=== PATIENT | female | born 1945 | race Caucasian/White ===

== ENCOUNTER 2021-10-07 09:24 | Inpatient (IN) ==
[2021-10-07] MEDS ORDERED: SODIUM CHLORIDE 0.9% 1,000 ML IV STA (11:04)
[2021-10-07] MEDS ORDERED: KETOROLAC 30 MG/1 ML VIAL IV STA (11:04)
[2021-10-07] MEDS ORDERED: ONDANSETRON 4 MG/2 ML VIAL IV STA (11:04)
[2021-10-07 12:25] LABS: Immature Granulocytes % 1.4 %; Immature Granulocytes Absolute 0.12 #; Lymphocytes # 0.6 10*3/uL (1.4-4.0); Lymphocytes % 7.2 % (21.3-54.2); Mean Corpuscular Volume 91.7 FL (87-102); Monocytes # 0.3 10*3/uL (0.11-0.8); Monocytes % 3.6 % (1.7-12.7); Neutrophils % 87.8 % (38.7-73.9); Platelet Count 117 T/CUMM (130-400); Red Blood Count 7.11 MC/CUMM (3.8-5.5); Red Cell Distribution Width 16.6 % (9.3-17.3); White Blood Count 8.7 T/CUMM (4-12)
[2021-10-07 12:28] LABS: Alanine Aminotransferase 32 U/L (13-56); Albumin 3.4 G/DL (3.4-5.0); Alkaline Phosphatase 48 U/L (45-117); Amylase 114 U/L (25-115); Aspartate Amino Transferase 43 U/L (0-37); Blood Urea Nitrogen 31 MG/DL (7-18); Calcium 9.8 MG/DL (8.5-10.1); Carbon Dioxide 25 MMOL/L (21-32); Chloride 98 MMOL/L (98-107); Estimated Glom Filtration Rate 14 ML/MIN; Glucose 107 MG/DL (74-106); Osmolality,Calculated 274.2 MOS/KG (273-304); Potassium 3.7 MMOL/L (3.5-5.1); Sodium 134 MMOL/L (136-145)
[2021-10-07 12:29] LABS: Hematocrit 65.2 VOL% (35.7-47.0); Hemoglobin 22.2 GM/DL (12.0-16.0)
[2021-10-07 12:53] LABS: Band Neutrophils 42 % (0-10); Lymphocytes 5 % (20-55); Metamyelocytes 5 %; Total Cells Counted 100
[2021-10-07 12:55] LABS: Platelet Estimate Adequate; Polychromasia Few; Spherocytes Slight
[2021-10-07 12:58] LABS: Burr Cells Few; Target Cells Slight
[2021-10-07 12:59] LABS: Poikilocytosis Few
[2021-10-07] MEDS ORDERED: PIPERACILLIN/TAZOBACTAM 3,375 MG in SODIUM CHLORIDE 0.9% 100 ML IV STA (13:53)
[2021-10-07] MEDS ORDERED: SODIUM CHLORIDE 0.9% 2,600 ML IV ONE (14:01)
[2021-10-07] MEDS: ACETAMINOPHEN 325 MG TABLET PO PRN (18:07)
[2021-10-07 19:05] LABS: Basophils # 0.1 10*3/uL (0.0-0.2); Basophils % 0.5 % (0.0-0.8); Hematocrit 37.2 VOL% (35.7-47.0); Immature Granulocytes % 2.9 %; Immature Granulocytes Absolute 0.38 #; Lymphocytes # 1.1 10*3/uL (1.4-4.0); Lymphocytes % 8.5 % (21.3-54.2); Mean Corpuscular HGB Conc 33.1 GM/DL (32-36); Mean Corpuscular Volume 93.9 FL (87-102); Mean Platelet Volume 11.1 FL (9.6-12.0); Monocytes # 0.7 10*3/uL (0.11-0.8); Monocytes % 5.1 % (1.7-12.7); Red Cell Distribution Width 14.6 % (9.3-17.3)
[2021-10-07 19:06] LABS: Hemoglobin 12.3 GM/DL (12.0-16.0); Red Blood Count 3.96 MC/CUMM (3.8-5.5)
[2021-10-07 19:07] LABS: Platelet Count 163 T/CUMM (130-400); White Blood Count 13.2 T/CUMM (4-12)
[2021-10-07 19:17] LABS: Calcium 7.3 MG/DL (8.5-10.1); Osmolality,Calculated 285.5 MOS/KG (273-304); Potassium 4.2 MMOL/L (3.5-5.1)
[2021-10-07 19:21] LABS: Albumin 2.4 G/DL (3.4-5.0); Bilirubin,Direct 0.28 MG/DL (0.0-0.20); Bilirubin,Indirect 0.7 MG/DL (0.0-1.0); Total Protein 5.8 G/DL (6.4-8.2)
[2021-10-07] MEDS: traMADol 50 MG TABLET PO PRN (19:22)
[2021-10-07 19:25] LABS: Anisocytosis Slight; Atypical Lymphocytes Few; Band Neutrophils 27 % (0-10); Burr Cells 1+; Lymphocytes 10 % (20-55); Macrocytosis Slight; Metamyelocytes 9 %; Microcytosis Slight; Poikilocytosis 1+; Total Cells Counted 100
[2021-10-07 19:27] LABS: Dohle Bodies 1+; Platelet Estimate Normal; Toxic Granulation 1+
[2021-10-07] MEDS: ONDANSETRON 4 MG/2 ML VIAL IV PRN (19:30)
[2021-10-07] MEDS: SODIUM CHLORIDE 0.9% 1,000 ML IV SCH ×2 (21:35→22:00)
[2021-10-07] MEDS: DOCUSATE SODIUM 100 MG CAPSULE PO SCH (21:35)
[2021-10-07] MEDS: MORPHINE 2 MG/1 ML SYRINGE IV PRN (22:03)
[2021-10-07] MEDS: PIPERACILLIN/TAZOBACTAM 3,375 MG in SODIUM CHLORIDE 0.9% 100 ML IV SCH (22:05)
[2021-10-08] MEDS: PROMETHAZINE INJ 12.5 MG in SODIUM CHLORIDE 0.9% 50 ML IV PRN ×2 (02:38→10:56)
[2021-10-08] MEDS: MORPHINE 2 MG/1 ML SYRINGE IV PRN (02:39)
[2021-10-08 03:15] LABS: Mucus,Urine Occasional /LPF (Occasional); Squamous Epithelial Cell,Urine Occasional /HPF (0-10); Urine Appearance Clear (Clear); Urine Color Yellow (Yellow)
[2021-10-08 03:16] LABS: Bilirubin,Urine Small mg/dL (Negative); Blood, Urine Trace mg/dL (Negative); Glucose,Urine (UA) Negative (Negative); Ketones,Urine Negative (Negative); Nitrite,Urine Negative (Negative); Protein,Urine 30 mg/dL (Negative); Urine Specific Gravity 1.025 (1.001-1.035); Urine Urobilinogen 0.2 eU/dL (<2.0)
[2021-10-08] MEDS: PIPERACILLIN/TAZOBACTAM 3,375 MG in SODIUM CHLORIDE 0.9% 100 ML IV SCH ×2 (05:39→18:35)
[2021-10-08] MEDS: ONDANSETRON 4 MG/2 ML VIAL IV PRN (05:47)
[2021-10-08] MEDS: SODIUM CHLORIDE 0.9% 1,000 ML IV SCH ×2 (05:57→16:03)
[2021-10-08 06:29] LABS: Basophils # 0.1 10*3/uL (0.0-0.2); Basophils % 0.6 % (0.0-0.8); Hematocrit 36.4 VOL% (35.7-47.0); Hemoglobin 12.1 GM/DL (12.0-16.0); Immature Granulocytes Absolute 0.11 #; Lymphocytes # 0.8 10*3/uL (1.4-4.0); Lymphocytes % 6.8 % (21.3-54.2); Mean Corpuscular HGB Conc 33.2 GM/DL (32-36); Mean Corpuscular Volume 93.1 FL (87-102); Mean Platelet Volume 11.4 FL (9.6-12.0); Monocytes # 0.4 10*3/uL (0.11-0.8); Monocytes % 3.4 % (1.7-12.7); Neutrophils % 88.2 % (38.7-73.9); Platelet Count 163 T/CUMM (130-400); Red Blood Count 3.91 MC/CUMM (3.8-5.5); White Blood Count 11.5 T/CUMM (4-12)
[2021-10-08 06:55] LABS: Band Neutrophils 4 % (0-10); Lymphocytes 4 % (20-55); Platelet Estimate Adequate; Total Cells Counted 100
[2021-10-08 07:02] LABS: Albumin 2.4 G/DL (3.4-5.0); Bilirubin,Total 0.9 MG/DL (0.20-1.00); Osmolality,Calculated 284.7 MOS/KG (273-304); Potassium 3.1 MMOL/L (3.5-5.1); Total Protein 6.2 G/DL (6.4-8.2)
[2021-10-08] MEDS ORDERED: MAGNESIUM SULF RIDER 2 GM/50 ML PREMIX IV ONE (13:00)
[2021-10-08] MEDS ORDERED: DILTIAZEM 50 MG/10 ML VIAL IV ONE (13:00)
[2021-10-08] MEDS: DOCUSATE SODIUM 100 MG CAPSULE PO SCH ×2 (13:59→20:39)
[2021-10-08] MEDS: PANTOPRAZOLE 40 MG TABLET PO SCH (13:59)
[2021-10-08] MEDS: DILTIAZEM INJ 100 MG in SODIUM CHLORIDE 0.9% 100 ML IV SCH (14:47)
[2021-10-08] MEDS: ASCORBIC ACID 500 MG TABLET PO SCH ×2 (16:29→20:39)
[2021-10-08] MEDS: POTASSIUM CHLORIDE RIDER 10 MEQ/100 ML PREMIX IV SCH ×4 (19:29→22:56)
[2021-10-09] MEDS: ACETAMINOPHEN 325 MG TABLET PO PRN (00:04)
[2021-10-09] MEDS: POTASSIUM CHLORIDE RIDER 10 MEQ/100 ML PREMIX IV SCH (00:05)
[2021-10-09] MEDS: PIPERACILLIN/TAZOBACTAM 3,375 MG in SODIUM CHLORIDE 0.9% 100 ML IV SCH ×3 (01:19→16:23)
[2021-10-09] MEDS: DILTIAZEM INJ 100 MG in SODIUM CHLORIDE 0.9% 100 ML IV SCH ×3 (02:12→19:48)
[2021-10-09] MEDS: SODIUM CHLORIDE 0.9% 1,000 ML IV SCH ×4 (03:45→21:38)
[2021-10-09 04:59] LABS: Basophils % 0.1 % (0.0-0.8); Eosinophils % 0.2 % (0.00-10.9); Hematocrit 38.8 VOL% (35.7-47.0); Hemoglobin 12.8 GM/DL (12.0-16.0); Immature Granulocytes % 0.4 %; Immature Granulocytes Absolute 0.04 #; Lymphocytes # 0.8 10*3/uL (1.4-4.0); Lymphocytes % 7.7 % (21.3-54.2); Mean Platelet Volume 11.2 FL (9.6-12.0); Monocytes # 0.5 10*3/uL (0.11-0.8); Monocytes % 4.4 % (1.7-12.7); Neutrophils % 87.2 % (38.7-73.9); Platelet Count 205 T/CUMM (130-400); Red Blood Count 4.17 MC/CUMM (3.8-5.5); Red Cell Distribution Width 15.2 % (9.3-17.3); White Blood Count 10.6 T/CUMM (4-12)
[2021-10-09 05:22] LABS: Band Neutrophils 3 % (0-10); Lymphocytes 9 % (20-55); Platelet Estimate Adequate; Total Cells Counted 100
[2021-10-09 05:35] LABS: Albumin 2.4 G/DL (3.4-5.0); Bilirubin,Total 0.5 MG/DL (0.20-1.00); Calcium 8.2 MG/DL (8.5-10.1); Free T4 (Free Thyroxine) 1.45 NG/DL (0.76-1.46); Osmolality,Calculated 287.7 MOS/KG (273-304); Thyroid Stimulating Hormone 0.07 uIU/ml (0.358-3.74); Total Protein 6.7 G/DL (6.4-8.2)
[2021-10-09] MEDS: PANTOPRAZOLE 40 MG TABLET PO SCH (09:57)
[2021-10-09] MEDS: DOCUSATE SODIUM 100 MG CAPSULE PO SCH (09:57)
[2021-10-09] MEDS: ASCORBIC ACID 500 MG TABLET PO SCH (09:57)
[2021-10-09] MEDS: ONDANSETRON 4 MG/2 ML VIAL IV PRN (10:14)
[2021-10-09] MEDS ORDERED: POTASSIUM CHLORIDE 20 MEQ TABLET PO ONE (10:39)
[2021-10-09] MEDS ORDERED: POTASSIUM CHLORIDE 20 MEQ TABLET PO PRN (10:39)
[2021-10-09] MEDS ORDERED: POTASSIUM CHLORIDE RIDER 10 MEQ/100 ML PREMIX IV PRN (13:01)
[2021-10-09] MEDS: ENOXAPARIN 80 MG/0.8 ML SYRINGE SUBCUT SCH (13:37)
[2021-10-09] MEDS: POTASSIUM CHLORIDE RIDER 10 MEQ/100 ML PREMIX IV PRN ×5 (13:38→18:16)
[2021-10-09] MEDS ORDERED: MORPHINE 2 MG/1 ML SYRINGE IV PRN ×2 (15:09)
[2021-10-09] MEDS ORDERED: PHENOL 1.4% THROAT SPRAY 177 ML BOTTLE PO PRN (15:09)
[2021-10-09] MEDS ORDERED: ONDANSETRON 4 MG/2 ML VIAL IV PRN (15:10)
[2021-10-10] MEDS: PIPERACILLIN/TAZOBACTAM 3,375 MG in SODIUM CHLORIDE 0.9% 100 ML IV SCH ×3 (00:52→16:48)
[2021-10-10] MEDS: DILTIAZEM INJ 100 MG in SODIUM CHLORIDE 0.9% 100 ML IV SCH ×3 (03:47→21:44)
[2021-10-10] MEDS: SODIUM CHLORIDE 0.9% 1,000 ML IV SCH ×3 (05:39→16:48)
[2021-10-10 08:52] LABS: Albumin 1.9 G/DL (3.4-5.0); Bilirubin,Total 0.7 MG/DL (0.20-1.00); Calcium 8.4 MG/DL (8.5-10.1); Osmolality,Calculated 285.3 MOS/KG (273-304); Potassium 3.3 MMOL/L (3.5-5.1); Total Protein 5.9 G/DL (6.4-8.2)
[2021-10-10] MEDS: PANTOPRAZOLE 40 MG VIAL IV SCH (09:08)
[2021-10-10] MEDS: POTASSIUM CHLORIDE RIDER 10 MEQ/100 ML PREMIX IV PRN ×4 (09:37→16:49)
[2021-10-10] MEDS ORDERED: DIGOXIN 0.5 MG/2 ML AMP IV ONE (10:04)
[2021-10-10] MEDS ORDERED: AMIODARONE INJ 150 MG in DEXTROSE 5% 100 ML IV ONE (11:23)
[2021-10-10] MEDS ORDERED: AMIODARONE INJ 450 MG in DEXTROSE 5% 241 ML IV SCH (11:30)
[2021-10-10] MEDS ORDERED: DILTIAZEM 50 MG/10 ML VIAL IV ONE (12:43)
[2021-10-10] MEDS: ENOXAPARIN 80 MG/0.8 ML SYRINGE SUBCUT SCH (13:20)
[2021-10-10] MEDS ORDERED: carvediloL 6.25 MG TABLET PO SCH (17:02)
[2021-10-10] MEDS: SODIUM CHLOR 0.9% KCL 20 MEQ 20 MEQ/1,000 ML BAG IV SCH (18:19)
[2021-10-10] MEDS: metroNIDAZOLE INJ 500 MG/100 ML PREMIX IV SCH (21:15)
[2021-10-10] MEDS: METOPROLOL TARTRATE 5 MG/5 ML VIAL IV SCH ×2 (21:36→21:37)
[2021-10-11] MEDS: PIPERACILLIN/TAZOBACTAM 3,375 MG in SODIUM CHLORIDE 0.9% 100 ML IV SCH ×2 (00:35→09:14)
[2021-10-11] MEDS: DILTIAZEM INJ 100 MG in SODIUM CHLORIDE 0.9% 100 ML IV SCH ×2 (02:54→14:59)
[2021-10-11] MEDS: metroNIDAZOLE INJ 500 MG/100 ML PREMIX IV SCH (04:51)
[2021-10-11 04:57] LABS: Basophils % 0.2 % (0.0-0.8); Eosinophils # 0.3 10*3/uL (0.0-0.87); Eosinophils % 2.1 % (0.00-10.9); Hematocrit 35.4 VOL% (35.7-47.0); Hemoglobin 11.8 GM/DL (12.0-16.0); Immature Granulocytes % 10.2 %; Immature Granulocytes Absolute 1.28 #; Lymphocytes # 1.5 10*3/uL (1.4-4.0); Lymphocytes % 11.8 % (21.3-54.2); Mean Corpuscular HGB Conc 33.3 GM/DL (32-36); Mean Corpuscular Volume 93.4 FL (87-102); Mean Platelet Volume 11.2 FL (9.6-12.0); Monocytes # 1.5 10*3/uL (0.11-0.8); Monocytes % 12.1 % (1.7-12.7); Neutrophils % 63.6 % (38.7-73.9); Platelet Count 222 T/CUMM (130-400); Red Blood Count 3.79 MC/CUMM (3.8-5.5); Red Cell Distribution Width 15.9 % (9.3-17.3); White Blood Count 12.5 T/CUMM (4-12)
[2021-10-11 05:17] LABS: Albumin 1.9 G/DL (3.4-5.0); Bilirubin,Total 0.7 MG/DL (0.20-1.00); Calcium 8.6 MG/DL (8.5-10.1); Osmolality,Calculated 288.8 MOS/KG (273-304); Potassium 3.2 MMOL/L (3.5-5.1)
[2021-10-11 05:23] LABS: Band Neutrophils 12 % (0-10); Eosinophils 5 % (0-10); Lymphocytes 11 % (20-55); Metamyelocytes 1 %; Promyelocytes 3 %; Total Cells Counted 100
[2021-10-11 05:24] LABS: Microcytosis Slight; Platelet Estimate Normal
[2021-10-11] MEDS: METOPROLOL TARTRATE 5 MG/5 ML VIAL IV SCH ×2 (05:29→15:33)
[2021-10-11] MEDS: PANTOPRAZOLE 40 MG VIAL IV SCH (09:12)
[2021-10-11] MEDS: AMIODARONE INJ 450 MG in DEXTROSE 5% 241 ML IV SCH (11:57)
[2021-10-11] MEDS: SODIUM CHLOR 0.9% KCL 20 MEQ 20 MEQ/1,000 ML BAG IV SCH ×2 (12:42→12:43)
[2021-10-11] MEDS: MEROPENEM 500 MG in SODIUM CHLORIDE 0.9% 100 ML IV SCH ×2 (15:27→19:32)
[2021-10-11] MEDS: ENOXAPARIN 80 MG/0.8 ML SYRINGE SUBCUT SCH (15:34)
[2021-10-11] MEDS ORDERED: METOPROLOL TARTRATE 5 MG/5 ML VIAL IV PRN (19:35)
[2021-10-11] MEDS ORDERED: LEVOTHYROXINE 100 MCG TABLET PO ONE (20:00)
[2021-10-11] MEDS: MONTELUKAST 10 MG TABLET PO SCH (20:35)
[2021-10-11] MEDS: FLUTICASONE 50 MCG NASAL SPRAY 16 GM BOTTLE BOTH NARES SCH (21:36)
[2021-10-11] MEDS: ALBUTEROL/IPRATROPIUM 3 ML NEB RESP TX SCH (22:15)
[2021-10-12] MEDS: SODIUM CHLOR 0.9% KCL 20 MEQ 20 MEQ/1,000 ML BAG IV SCH ×4 (00:13→21:48)
[2021-10-12] MEDS: MEROPENEM 500 MG in SODIUM CHLORIDE 0.9% 100 ML IV SCH ×4 (00:13→17:44)
[2021-10-12] MEDS: ENOXAPARIN 80 MG/0.8 ML SYRINGE SUBCUT SCH ×2 (01:49→12:50)
[2021-10-12] MEDS: AMIODARONE INJ 450 MG in DEXTROSE 5% 241 ML IV SCH (01:49)
[2021-10-12 06:13] LABS: Basophils % 0.1 % (0.0-0.8); Eosinophils # 0.4 10*3/uL (0.0-0.87); Eosinophils % 1.8 % (0.00-10.9); Hematocrit 36.6 VOL% (35.7-47.0); Hemoglobin 11.9 GM/DL (12.0-16.0); Immature Granulocytes % 13.5 %; Immature Granulocytes Absolute 2.62 #; Lymphocytes # 2.3 10*3/uL (1.4-4.0); Mean Corpuscular HGB Conc 32.5 GM/DL (32-36); Mean Corpuscular Volume 94.6 FL (87-102); Monocytes # 1.5 10*3/uL (0.11-0.8); Monocytes % 7.7 % (1.7-12.7); NRBC # 0.04 10*3/uL; Neutrophils % 64.9 % (38.7-73.9); Platelet Count 240 T/CUMM (130-400); Red Blood Count 3.87 MC/CUMM (3.8-5.5); White Blood Count 19.4 T/CUMM (4-12)
[2021-10-12] MEDS ORDERED: LEVOTHYROXINE 200 MCG TABLET PO SCH (06:30)
[2021-10-12 06:43] LABS: Band Neutrophils 8 % (0-10); Eosinophils 2 % (0-10); Lymphocytes 10 % (20-55); Metamyelocytes 2 %; Microcytosis Slight; Myelocytes 1 %; Platelet Estimate Normal; Promyelocytes 1 %; Total Cells Counted 100
[2021-10-12 06:49] LABS: Albumin 1.8 G/DL (3.4-5.0); Bilirubin,Total 0.6 MG/DL (0.20-1.00); Calcium 7.8 MG/DL (8.5-10.1); Osmolality,Calculated 277.5 MOS/KG (273-304); Potassium 3.2 MMOL/L (3.5-5.1); Total Protein 5.5 G/DL (6.4-8.2)
[2021-10-12] MEDS: ALBUTEROL/IPRATROPIUM 3 ML NEB RESP TX SCH ×3 (07:15→23:30)
[2021-10-12] MEDS: FEXOFENADINE 180 MG TABLET PO SCH (08:30)
[2021-10-12] MEDS: ASPIRIN EC 81 MG TABLET PO SCH (08:30)
[2021-10-12] MEDS: LORATADINE 10 MG TABLET PO SCH (08:30)
[2021-10-12] MEDS: PANTOPRAZOLE 40 MG VIAL IV SCH (08:36)
[2021-10-12] MEDS: carvediloL 6.25 MG TABLET PO SCH ×2 (08:36→17:43)
[2021-10-12] MEDS: NON-FORMULARY MEDICATION (Fluticasone Furoate-Vilanterol [Breo Ellipta] 200-25 mcg/dose Bl INH SCH (10:10)
[2021-10-12] MEDS: AMIODARONE 200 MG TABLET PO SCH ×2 (12:13→21:06)
[2021-10-12] MEDS: DILTIAZEM INJ 100 MG in SODIUM CHLORIDE 0.9% 100 ML IV SCH (15:04)
[2021-10-12] MEDS: FAMOTIDINE 20 MG TABLET PO SCH (21:06)
[2021-10-12] MEDS: FLUTICASONE 50 MCG NASAL SPRAY 16 GM BOTTLE BOTH NARES SCH (21:07)
[2021-10-12] MEDS: MONTELUKAST 10 MG TABLET PO SCH (21:09)
[2021-10-13] MEDS: MEROPENEM 500 MG in SODIUM CHLORIDE 0.9% 100 ML IV SCH ×4 (01:15→18:36)
[2021-10-13 04:04] LABS: Basophils % 0.1 % (0.0-0.8); Eosinophils # 0.3 10*3/uL (0.0-0.87); Eosinophils % 1.3 % (0.00-10.9); Hematocrit 34.3 VOL% (35.7-47.0); Hemoglobin 11.2 GM/DL (12.0-16.0); Immature Granulocytes % 12.9 %; Immature Granulocytes Absolute 2.79 #; Lymphocytes # 2.1 10*3/uL (1.4-4.0); Lymphocytes % 9.8 % (21.3-54.2); Mean Corpuscular HGB Conc 32.7 GM/DL (32-36); Mean Corpuscular Volume 94.2 FL (87-102); Mean Platelet Volume 10.9 FL (9.6-12.0); Monocytes # 1.3 10*3/uL (0.11-0.8); Monocytes % 6.2 % (1.7-12.7); Neutrophils % 69.7 % (38.7-73.9); Platelet Count 248 T/CUMM (130-400); Red Blood Count 3.64 MC/CUMM (3.8-5.5); Red Cell Distribution Width 15.9 % (9.3-17.3); White Blood Count 21.6 T/CUMM (4-12)
[2021-10-13 04:12] LABS: PT Patient Result 11.5 SECS (10.5-12.0)
[2021-10-13 04:27] LABS: Albumin 1.7 G/DL (3.4-5.0); Bilirubin,Total 0.5 MG/DL (0.20-1.00); Calcium 7.5 MG/DL (8.5-10.1); Eosinophils 1 % (0-10); Lymphocytes 16 % (20-55); Osmolality,Calculated 275.5 MOS/KG (273-304); Platelet Estimate Normal; Potassium 3.5 MMOL/L (3.5-5.1); Total Cells Counted 100; Total Protein 5.1 G/DL (6.4-8.2)
[2021-10-13] MEDS: LEVOTHYROXINE 150 MCG TABLET PO SCH (06:28)
[2021-10-13] MEDS: ALBUTEROL/IPRATROPIUM 3 ML NEB RESP TX SCH ×2 (07:20→23:14)
[2021-10-13] MEDS: SODIUM CHLOR 0.9% KCL 20 MEQ 20 MEQ/1,000 ML BAG IV SCH ×3 (08:17→21:40)
[2021-10-13] MEDS ORDERED: MAGNESIUM SULF RIDER 2 GM/50 ML PREMIX IV ONE (08:29)
[2021-10-13] MEDS: PANTOPRAZOLE 40 MG VIAL IV SCH (09:21)
[2021-10-13] MEDS: AMIODARONE 200 MG TABLET PO SCH ×2 (09:22→21:42)
[2021-10-13] MEDS: NON-FORMULARY MEDICATION (Fluticasone Furoate-Vilanterol [Breo Ellipta] 200-25 mcg/dose Bl INH SCH (09:22)
[2021-10-13] MEDS: FEXOFENADINE 180 MG TABLET PO SCH (09:22)
[2021-10-13] MEDS: LORATADINE 10 MG TABLET PO SCH (09:22)
[2021-10-13] MEDS: carvediloL 6.25 MG TABLET PO SCH ×2 (09:22→17:50)
[2021-10-13] MEDS: FAMOTIDINE 20 MG TABLET PO SCH ×2 (09:23→21:42)
[2021-10-13] MEDS ORDERED: DIAZEPAM 5 MG TABLET PO ONE (09:47)
[2021-10-13] MEDS ORDERED: MIDAZOLAM 2 MG/2 ML VIAL IV ONE (10:40)
[2021-10-13] MEDS ORDERED: fentaNYL 100 MCG/2 ML VIAL IV ONE (10:41)
[2021-10-13] MEDS: SODIUM CHLORIDE 0.45% 1,000 ML IV SCH (10:43)
[2021-10-13] MEDS ORDERED: DEXTROSE 10% 25 GM/250 ML BAG IV PRN (12:02)
[2021-10-13] MEDS ORDERED: GLUCAGON 1 MG VIAL IM PRN (12:02)
[2021-10-13] MEDS: DILTIAZEM INJ 100 MG in SODIUM CHLORIDE 0.9% 100 ML IV SCH (13:29)
[2021-10-13] MEDS ORDERED: DEXTROSE 10% 1,000 ML IV PRN (17:00)
[2021-10-13] MEDS ORDERED: MULTIVITAMIN INJ 10 ML, ZINC/COPPER/MANGANESE/SELENIUM 1 ML in AMINO ACIDS/DEXT/LYTES 5... IV SCH (17:00)
[2021-10-13] MEDS: INSULIN REGULAR 100 UNIT/ML SUBCUT SCH (18:35)
[2021-10-13] MEDS: traMADol 50 MG TABLET PO PRN (21:41)
[2021-10-13] MEDS: MONTELUKAST 10 MG TABLET PO SCH (21:41)
[2021-10-13] MEDS: FLUTICASONE 50 MCG NASAL SPRAY 16 GM BOTTLE BOTH NARES SCH (21:42)
[2021-10-14] MEDS: MEROPENEM 500 MG in SODIUM CHLORIDE 0.9% 100 ML IV SCH ×5 (00:37→23:30)
[2021-10-14] MEDS: INSULIN REGULAR 100 UNIT/ML SUBCUT SCH ×4 (00:46→18:01)
[2021-10-14] MEDS: ENOXAPARIN 80 MG/0.8 ML SYRINGE SUBCUT SCH ×2 (00:47→13:15)
[2021-10-14] MEDS: SODIUM CHLOR 0.9% KCL 20 MEQ 20 MEQ/1,000 ML BAG IV SCH ×2 (00:47→14:57)
[2021-10-14] MEDS: LEVOTHYROXINE 150 MCG TABLET PO SCH (06:08)
[2021-10-14 06:22] LABS: Phosphorous 2.4 MG/DL (2.5-4.9)
[2021-10-14] MEDS: ALBUTEROL/IPRATROPIUM 3 ML NEB RESP TX SCH ×2 (07:00→14:20)
[2021-10-14] MEDS: BUDESONIDE 0.25 MG/2 ML NEB RESP TX SCH (07:00)
[2021-10-14 07:41] LABS: Albumin 1.8 G/DL (3.4-5.0); Bilirubin,Total 0.4 MG/DL (0.20-1.00); Calcium 7.9 MG/DL (8.5-10.1); Osmolality,Calculated 275.7 MOS/KG (273-304); Potassium 3.5 MMOL/L (3.5-5.1); Total Protein 5.4 G/DL (6.4-8.2)
[2021-10-14] MEDS: LORATADINE 10 MG TABLET PO SCH (08:12)
[2021-10-14] MEDS: FEXOFENADINE 180 MG TABLET PO SCH (08:12)
[2021-10-14] MEDS: FAMOTIDINE 20 MG TABLET PO SCH ×2 (08:12→20:46)
[2021-10-14] MEDS: PANTOPRAZOLE 40 MG VIAL IV SCH (08:12)
[2021-10-14] MEDS: AMIODARONE 200 MG TABLET PO SCH ×2 (08:12→20:46)
[2021-10-14] MEDS: carvediloL 6.25 MG TABLET PO SCH ×2 (08:13→17:53)
[2021-10-14] MEDS: ASPIRIN EC 81 MG TABLET PO SCH (08:18)
[2021-10-14] MEDS: NON-FORMULARY MEDICATION (Fluticasone Furoate-Vilanterol [Breo Ellipta] 200-25 mcg/dose Bl INH SCH (08:18)
[2021-10-14 08:54] LABS: Basophils % 0.1 % (0.0-0.8); Eosinophils # 0.3 10*3/uL (0.0-0.87); Eosinophils % 1.8 % (0.00-10.9); Hematocrit 35.3 VOL% (35.7-47.0); Hemoglobin 11.3 GM/DL (12.0-16.0); Immature Granulocytes % 11.1 %; Immature Granulocytes Absolute 2.07 #; Lymphocytes # 1.8 10*3/uL (1.4-4.0); Lymphocytes % 9.5 % (21.3-54.2); Mean Corpuscular Volume 95.4 FL (87-102); Mean Platelet Volume 11.2 FL (9.6-12.0); Monocytes # 1.2 10*3/uL (0.11-0.8); Monocytes % 6.2 % (1.7-12.7); Neutrophils % 71.3 % (38.7-73.9); Platelet Count 267 T/CUMM (130-400); Red Cell Distribution Width 15.8 % (9.3-17.3); White Blood Count 18.7 T/CUMM (4-12)
[2021-10-14 09:27] LABS: Anisocytosis 1+; Band Neutrophils 25 % (0-10); Lymphocytes 11 % (20-55); Metamyelocytes 2 %; Myelocytes 3 %; Platelet Estimate Normal; Total Cells Counted 100
[2021-10-14 09:28] LABS: Giant Platelets Few; Macrocytosis Slight; Spherocytes Few
[2021-10-14] MEDS: SODIUM CHLORIDE 0.45% 1,000 ML IV SCH (13:02)
[2021-10-14] MEDS: DILTIAZEM INJ 100 MG in SODIUM CHLORIDE 0.9% 100 ML IV SCH (13:03)
[2021-10-14] MEDS: methylPREDNISolone SOD SUC 40 MG/1 ML VIAL IV SCH (13:15)
[2021-10-14] MEDS: KETOROLAC 15 MG/1 ML VIAL IV SCH ×2 (13:16→20:46)
[2021-10-14] MEDS ORDERED: FAT EMULSION 20% 250 ML IV SCH (14:00)
[2021-10-14] MEDS ORDERED: MULTIVITAMIN INJ 10 ML, ZINC/COPPER/MANGANESE/SELENIUM 1 ML in AMINO ACIDS/DEXT/LYTES 5... IV SCH (17:00)
[2021-10-14] MEDS: ZINC OXIDE PASTE 113 GM TUBE TOP SCH (20:46)
[2021-10-14] MEDS: MONTELUKAST 10 MG TABLET PO SCH (20:46)
[2021-10-14] MEDS: FLUTICASONE 50 MCG NASAL SPRAY 16 GM BOTTLE BOTH NARES SCH (20:46)
[2021-10-15] MEDS: methylPREDNISolone SOD SUC 40 MG/1 ML VIAL IV SCH
[2021-10-15] MEDS: BUDESONIDE 0.25 MG/2 ML NEB RESP TX SCH ×2 (00:15→07:10)
[2021-10-15] MEDS: ALBUTEROL/IPRATROPIUM 3 ML NEB RESP TX SCH ×3 (00:15→13:20)
[2021-10-15] MEDS: INSULIN REGULAR 100 UNIT/ML SUBCUT SCH ×4 (00:28→17:44)
[2021-10-15] MEDS: KETOROLAC 15 MG/1 ML VIAL IV SCH ×4 (01:36→20:48)
[2021-10-15 05:18] LABS: Basophils # 0.1 10*3/uL (0.0-0.2); Basophils % 0.7 % (0.0-0.8); Hematocrit 33.2 VOL% (35.7-47.0); Hemoglobin 10.7 GM/DL (12.0-16.0); Immature Granulocytes % 9.7 %; Immature Granulocytes Absolute 1.78 #; Lymphocytes # 1.7 10*3/uL (1.4-4.0); Mean Corpuscular HGB Conc 32.2 GM/DL (32-36); Mean Corpuscular Volume 94.6 FL (87-102); Mean Platelet Volume 11.1 FL (9.6-12.0); Monocytes # 0.5 10*3/uL (0.11-0.8); Monocytes % 2.7 % (1.7-12.7); Neutrophils % 77.9 % (38.7-73.9); Platelet Count 300 T/CUMM (130-400); Red Blood Count 3.51 MC/CUMM (3.8-5.5); Red Cell Distribution Width 15.6 % (9.3-17.3); White Blood Count 18.3 T/CUMM (4-12)
[2021-10-15 05:39] LABS: Alanine Aminotransferase 17 U/L (13-56); Albumin 1.6 G/DL (3.4-5.0); Alkaline Phosphatase 69 U/L (45-117); Aspartate Amino Transferase 19 U/L (0-37); Bilirubin,Total < 0.39 MG/DL (0.20-1.00); Blood Urea Nitrogen 15 MG/DL (7-18); Carbon Dioxide 21 MMOL/L (21-32); Chloride 108 MMOL/L (98-107); Estimated Glom Filtration Rate 101 ML/MIN; Glucose 163 MG/DL (74-106); Potassium 4.1 MMOL/L (3.5-5.1); Sodium 136 MMOL/L (136-145); Total Protein 5.2 G/DL (6.4-8.2)
[2021-10-15 05:47] LABS: Anisocytosis 1+; Band Neutrophils 30 % (0-10); Lymphocytes 9 % (20-55); Macrocytosis Slight; Metamyelocytes 2 %; Myelocytes 2 %; Platelet Estimate Normal; Total Cells Counted 100
[2021-10-15 05:48] LABS: Spherocytes Few
[2021-10-15] MEDS: MEROPENEM 500 MG in SODIUM CHLORIDE 0.9% 100 ML IV SCH ×3 (06:19→20:48)
[2021-10-15] MEDS: LEVOTHYROXINE 150 MCG TABLET PO SCH (06:19)
[2021-10-15] MEDS ORDERED: VANCOMYCIN INJ 1,000 MG in SODIUM CHLORIDE 0.9% 250 ML IV SCH (08:00)
[2021-10-15] MEDS: POTASSIUM CHLORIDE 20 MEQ TABLET PO SCH (09:29)
[2021-10-15] MEDS: carvediloL 6.25 MG TABLET PO SCH ×2 (09:30→17:42)
[2021-10-15] MEDS: FEXOFENADINE 180 MG TABLET PO SCH (09:30)
[2021-10-15] MEDS: FAMOTIDINE 20 MG TABLET PO SCH ×2 (09:31→20:48)
[2021-10-15] MEDS: lisinopriL 10 MG TABLET PO SCH (09:31)
[2021-10-15] MEDS: AMIODARONE 200 MG TABLET PO SCH ×2 (09:32→20:48)
[2021-10-15] MEDS: ASPIRIN EC 81 MG TABLET PO SCH (09:32)
[2021-10-15] MEDS: LORATADINE 10 MG TABLET PO SCH (09:32)
[2021-10-15] MEDS: hydroCHLOROthiazide 12.5 MG CAPSULE PO SCH (09:33)
[2021-10-15] MEDS: ZINC OXIDE PASTE 113 GM TUBE TOP SCH ×2 (09:35→20:49)
[2021-10-15] MEDS: NON-FORMULARY MEDICATION (Fluticasone Furoate-Vilanterol [Breo Ellipta] 200-25 mcg/dose Bl INH SCH (09:36)
[2021-10-15] MEDS: PANTOPRAZOLE 40 MG VIAL IV SCH (09:37)
[2021-10-15] MEDS: VANCOMYCIN INJ 1,250 MG in SODIUM CHLORIDE 0.9% 250 ML IV SCH ×2 (10:53→21:18)
[2021-10-15] MEDS: DILTIAZEM INJ 100 MG in SODIUM CHLORIDE 0.9% 100 ML IV SCH (13:10)
[2021-10-15] MEDS: ENOXAPARIN 80 MG/0.8 ML SYRINGE SUBCUT SCH ×2 (14:28)
[2021-10-15] MEDS: ONDANSETRON 4 MG/2 ML VIAL IV PRN (16:09)
[2021-10-15] MEDS: MONTELUKAST 10 MG TABLET PO SCH (20:48)
[2021-10-15] MEDS: FLUTICASONE 50 MCG NASAL SPRAY 16 GM BOTTLE BOTH NARES SCH (20:49)
[2021-10-16] MEDS: INSULIN REGULAR 100 UNIT/ML SUBCUT SCH ×4 (01:33→17:50)
[2021-10-16] MEDS: KETOROLAC 15 MG/1 ML VIAL IV SCH ×2 (01:50→05:00)
[2021-10-16] MEDS: MEROPENEM 500 MG in SODIUM CHLORIDE 0.9% 100 ML IV SCH ×4 (03:50→18:33)
[2021-10-16 04:40] LABS: Basophils # 0.1 10*3/uL (0.0-0.2); Basophils % 0.6 % (0.0-0.8); Eosinophils # 0.1 10*3/uL (0.0-0.87); Eosinophils % 0.6 % (0.00-10.9); Hemoglobin 11.5 GM/DL (12.0-16.0); Immature Granulocytes % 6.2 %; Immature Granulocytes Absolute 1.21 #; Lymphocytes # 2.1 10*3/uL (1.4-4.0); Lymphocytes % 10.8 % (21.3-54.2); Mean Corpuscular HGB Conc 31.9 GM/DL (32-36); Mean Corpuscular Volume 95.2 FL (87-102); Mean Platelet Volume 10.7 FL (9.6-12.0); Monocytes # 1.5 10*3/uL (0.11-0.8); Monocytes % 7.7 % (1.7-12.7); Neutrophils % 74.1 % (38.7-73.9); Platelet Count 386 T/CUMM (130-400); Red Blood Count 3.78 MC/CUMM (3.8-5.5); Red Cell Distribution Width 15.9 % (9.3-17.3); White Blood Count 19.5 T/CUMM (4-12)
[2021-10-16 04:58] LABS: Phosphorous 2.5 MG/DL (2.5-4.9)
[2021-10-16 05:04] LABS: Band Neutrophils 3 % (0-10); Lymphocytes 12 % (20-55); Myelocytes 1 %; Total Cells Counted 100
[2021-10-16 05:05] LABS: Macrocytosis Slight; Platelet Estimate Normal
[2021-10-16 05:22] LABS: Calcium 7.9 MG/DL (8.5-10.1); Osmolality,Calculated 272.8 MOS/KG (273-304); Potassium 3.7 MMOL/L (3.5-5.1)
[2021-10-16] MEDS: LEVOTHYROXINE 150 MCG TABLET PO SCH (06:08)
[2021-10-16] MEDS: BUDESONIDE 0.25 MG/2 ML NEB RESP TX SCH ×3 (07:15→22:41)
[2021-10-16] MEDS: ALBUTEROL/IPRATROPIUM 3 ML NEB RESP TX SCH ×5 (07:15→22:40)
[2021-10-16] MEDS ORDERED: FUROSEMIDE 40 MG/4 ML VIAL IV ONE (09:31)
[2021-10-16] MEDS ORDERED: MAGNESIUM SULF RIDER 2 GM/50 ML PREMIX IV ONE ×2 (09:38→22:52)
[2021-10-16] MEDS ORDERED: cefTRIAXone 2,000 MG in SODIUM CHLORIDE 0.9% 100 ML IV SCH (10:00)
[2021-10-16] MEDS ORDERED: FLUCONAZOLE INJ 400 MG/200 ML PREMIX IV ONE (10:30)
[2021-10-16] MEDS: carvediloL 6.25 MG TABLET PO SCH ×2 (11:27→17:59)
[2021-10-16] MEDS: FEXOFENADINE 180 MG TABLET PO SCH (11:27)
[2021-10-16] MEDS: ASPIRIN EC 81 MG TABLET PO SCH (11:27)
[2021-10-16] MEDS: LORATADINE 10 MG TABLET PO SCH (11:28)
[2021-10-16] MEDS: AMIODARONE 200 MG TABLET PO SCH ×2 (11:28→21:58)
[2021-10-16] MEDS: ZINC OXIDE PASTE 113 GM TUBE TOP SCH ×2 (11:28→22:01)
[2021-10-16] MEDS: NON-FORMULARY MEDICATION (Fluticasone Furoate-Vilanterol [Breo Ellipta] 200-25 mcg/dose Bl INH SCH (11:29)
[2021-10-16] MEDS: FAMOTIDINE 20 MG TABLET PO SCH ×2 (11:30→21:58)
[2021-10-16] MEDS: lisinopriL 10 MG TABLET PO SCH (11:30)
[2021-10-16] MEDS: POTASSIUM CHLORIDE 20 MEQ TABLET PO SCH (11:30)
[2021-10-16] MEDS: PANTOPRAZOLE 40 MG VIAL IV SCH (11:34)
[2021-10-16] MEDS: traMADol 50 MG TABLET PO PRN (12:07)
[2021-10-16] MEDS: hydroCHLOROthiazide 12.5 MG CAPSULE PO SCH (12:13)
[2021-10-16] MEDS: SIMETHICONE CHEW 125 MG TABLET PO SCH ×3 (13:17→21:58)
[2021-10-16] MEDS: ENOXAPARIN 80 MG/0.8 ML SYRINGE SUBCUT SCH ×2 (13:17)
[2021-10-16] MEDS: DILTIAZEM INJ 100 MG in SODIUM CHLORIDE 0.9% 100 ML IV SCH (15:25)
[2021-10-16] MEDS: MONTELUKAST 10 MG TABLET PO SCH (21:58)
[2021-10-16] MEDS: FLUTICASONE 50 MCG NASAL SPRAY 16 GM BOTTLE BOTH NARES SCH (22:01)
[2021-10-17] MEDS: INSULIN REGULAR 100 UNIT/ML SUBCUT SCH ×4 (00:33→17:15)
[2021-10-17] MEDS: ENOXAPARIN 80 MG/0.8 ML SYRINGE SUBCUT SCH (01:49)
[2021-10-17] MEDS: MEROPENEM 500 MG in SODIUM CHLORIDE 0.9% 100 ML IV SCH ×5 (01:53→18:09)
[2021-10-17 05:11] LABS: Basophils # 0.2 10*3/uL (0.0-0.2); Basophils % 0.6 % (0.0-0.8); Eosinophils % 0.1 % (0.00-10.9); Hematocrit 40.7 VOL% (35.7-47.0); Hemoglobin 13.3 GM/DL (12.0-16.0); Immature Granulocytes % 5.5 %; Immature Granulocytes Absolute 1.61 #; Lymphocytes % 10.2 % (21.3-54.2); Mean Corpuscular HGB Conc 32.7 GM/DL (32-36); Mean Corpuscular Volume 92.9 FL (87-102); Mean Platelet Volume 10.9 FL (9.6-12.0); Monocytes # 1.4 10*3/uL (0.11-0.8); Monocytes % 4.6 % (1.7-12.7); Platelet Count 556 T/CUMM (130-400); Red Blood Count 4.38 MC/CUMM (3.8-5.5); Red Cell Distribution Width 15.9 % (9.3-17.3); White Blood Count 29.3 T/CUMM (4-12)
[2021-10-17 05:36] LABS: Band Neutrophils 3 % (0-10); Lymphocytes 7 % (20-55); Nucleated Red Blood Cells 1 (0-5); Platelet Estimate Increased; Total Cells Counted 100
[2021-10-17 05:50] LABS: Albumin 1.7 G/DL (3.4-5.0); Bilirubin,Total 0.4 MG/DL (0.20-1.00); Calcium 8.4 MG/DL (8.5-10.1); Osmolality,Calculated 267.4 MOS/KG (273-304); Potassium 4.3 MMOL/L (3.5-5.1); Total Protein 5.6 G/DL (6.4-8.2)
[2021-10-17] MEDS: LEVOTHYROXINE 150 MCG TABLET PO SCH (06:15)
[2021-10-17] MEDS: BUDESONIDE 0.25 MG/2 ML NEB RESP TX SCH ×2 (07:08→19:41)
[2021-10-17] MEDS: ALBUTEROL/IPRATROPIUM 3 ML NEB RESP TX SCH ×2 (07:08→14:18)
[2021-10-17] MEDS: carvediloL 6.25 MG TABLET PO SCH ×2 (09:03→17:41)
[2021-10-17] MEDS: lisinopriL 10 MG TABLET PO SCH (09:03)
[2021-10-17] MEDS: PANTOPRAZOLE 40 MG VIAL IV SCH (09:53)
[2021-10-17] MEDS: ASPIRIN EC 81 MG TABLET PO SCH (09:54)
[2021-10-17] MEDS: POTASSIUM CHLORIDE 20 MEQ TABLET PO SCH (09:54)
[2021-10-17] MEDS: LORATADINE 10 MG TABLET PO SCH (09:54)
[2021-10-17] MEDS: FAMOTIDINE 20 MG TABLET PO SCH ×2 (09:54→21:40)
[2021-10-17] MEDS: SIMETHICONE CHEW 125 MG TABLET PO SCH ×4 (09:54→21:45)
[2021-10-17] MEDS: FEXOFENADINE 180 MG TABLET PO SCH (09:54)
[2021-10-17] MEDS: AMIODARONE 200 MG TABLET PO SCH ×2 (09:54→21:40)
[2021-10-17] MEDS: NON-FORMULARY MEDICATION (Fluticasone Furoate-Vilanterol [Breo Ellipta] 200-25 mcg/dose Bl INH SCH (09:55)
[2021-10-17] MEDS: ZINC OXIDE PASTE 113 GM TUBE TOP SCH ×2 (09:59→21:43)
[2021-10-17] MEDS: FLUCONAZOLE INJ 200 MG/100 ML PREMIX IV SCH (10:00)
[2021-10-17] MEDS ORDERED: LACTATED RINGERS 1,000 ML IV ONE (11:24)
[2021-10-17] MEDS: DILTIAZEM INJ 100 MG in SODIUM CHLORIDE 0.9% 100 ML IV SCH (13:13)
[2021-10-17] MEDS: FLUTICASONE 50 MCG NASAL SPRAY 16 GM BOTTLE BOTH NARES SCH (21:43)
[2021-10-17] MEDS: MONTELUKAST 10 MG TABLET PO SCH (21:44)
[2021-10-18] MEDS: ALBUTEROL/IPRATROPIUM 3 ML NEB RESP TX SCH ×4 (00:21→23:14)
[2021-10-18] MEDS: INSULIN REGULAR 100 UNIT/ML SUBCUT SCH ×4 (00:54→18:18)
[2021-10-18] MEDS: MEROPENEM 500 MG in SODIUM CHLORIDE 0.9% 100 ML IV SCH ×4 (01:19→20:06)
[2021-10-18 05:08] LABS: Basophils # 0.2 10*3/uL (0.0-0.2); Basophils % 0.5 % (0.0-0.8); Eosinophils % 0.1 % (0.00-10.9); Hematocrit 35.2 VOL% (35.7-47.0); Hemoglobin 11.5 GM/DL (12.0-16.0); Immature Granulocytes % 6.1 %; Immature Granulocytes Absolute 1.67 #; Lymphocytes # 2.2 10*3/uL (1.4-4.0); Lymphocytes % 8.1 % (21.3-54.2); Mean Corpuscular HGB Conc 32.7 GM/DL (32-36); Mean Corpuscular Volume 93.1 FL (87-102); Mean Platelet Volume 10.7 FL (9.6-12.0); Monocytes # 1.8 10*3/uL (0.11-0.8); Monocytes % 6.6 % (1.7-12.7); Neutrophils % 78.6 % (38.7-73.9); Platelet Count 458 T/CUMM (130-400); Red Blood Count 3.78 MC/CUMM (3.8-5.5); White Blood Count 27.4 T/CUMM (4-12)
[2021-10-18 05:31] LABS: Albumin 1.5 G/DL (3.4-5.0); Band Neutrophils 5 % (0-10); Bilirubin,Total 0.4 MG/DL (0.20-1.00); Calcium 8.1 MG/DL (8.5-10.1); Lymphocytes 7 % (20-55); Osmolality,Calculated 271.1 MOS/KG (273-304); Platelet Estimate Adequate; Potassium 4.4 MMOL/L (3.5-5.1); Total Cells Counted 100; Total Protein 5.3 G/DL (6.4-8.2)
[2021-10-18] MEDS: LEVOTHYROXINE 150 MCG TABLET PO SCH (06:37)
[2021-10-18] MEDS ORDERED: ALBUMIN 5% 25.0 GM/500 ML VIAL IV ONE (07:14)
[2021-10-18] MEDS ORDERED: PHENYLEPHRINE DRIP 20 MG/250 ML PREMIX IV ONE (07:14)
[2021-10-18] MEDS ORDERED: ROCURONIUM 50 MG/5 ML VIAL IV ONE ×2 (07:20→11:36)
[2021-10-18] MEDS ORDERED: SUFentanil 50 MCG/ML AMP ONE (07:20)
[2021-10-18] MEDS ORDERED: SUCCINYLCHOLINE 200 MG/10 ML VIAL ONE (07:20)
[2021-10-18] MEDS ORDERED: propofoL 200 MG/20 ML VIAL IV ONE (07:20)
[2021-10-18] MEDS ORDERED: SEVOFLURANE 1 UNIT/15 MINUTE INH ONE ×4 (07:20→11:56)
[2021-10-18] MEDS ORDERED: LIDOCAINE 2% 5 ML VIAL ONE (07:20)
[2021-10-18] MEDS ORDERED: HEPARIN/NACL 0.9% 2 UNITS/ML 1,000 UNIT/500 ML BAG IV ONE (07:33)
[2021-10-18] MEDS ORDERED: LACTATED RINGERS 1,000 ML IV SCH (08:00)
[2021-10-18] MEDS: BUDESONIDE 0.25 MG/2 ML NEB RESP TX SCH ×2 (08:37→23:13)
[2021-10-18] MEDS ORDERED: ERTAPENEM 1,000 MG VIAL ONE (09:27)
[2021-10-18] MEDS ORDERED: ERTAPENEM 1,000 MG in SODIUM CHLORIDE 0.9% 100 ML IV ONE (09:30)
[2021-10-18] MEDS ORDERED: LACTATED RINGERS 2,000 ML IV ONE (10:20)
[2021-10-18] MEDS ORDERED: SODIUM CHLORIDE 0.9% 1,000 ML IV ONE (10:20)
[2021-10-18] MEDS ORDERED: PHENYLEPHRINE 10 MG/1 ML VIAL IV ONE (10:20)
[2021-10-18] MEDS ORDERED: PHENYLEPHRINE 1 MG/10 ML SYRINGE IV ONE (10:20)
[2021-10-18] MEDS ORDERED: SODIUM CHLORIDE 0.9% 250 ML IV ONE (10:20)
[2021-10-18 11:04] LABS: ABG Base Excess -4.5 MMOL/L (-2.5-2.5); ABG HCO3 20.7 MMOL/L (20-26); ABG Oxygen Saturation 95.9 % (95-100); ABG PCO2 47.2 MM HG (35-48); ABG PH 7.284 (7.35-7.45); ABG TCO2 20.3 MMOL/L (23-27); Glucose Heart Surgery 105 MG/DL (74-106); Hematocrit Heart Surgery 34.6 PERCENT (37-47); Hemoglobin Heart Surgery 11.2 G/DL (12.0-16.0); PCO2 Patient Temp Arterial 47.2 MMHG; PH Patient Temp Arterial 7.284; Patient Temperature 37 CELCIUS; Potassium Heart/CVR 4.3 MMOL/L (3.5-5.1); Sodium Heart/CVR 132 MMOL/L (135-145)
[2021-10-18] MEDS ORDERED: MIDAZOLAM 2 MG/2 ML VIAL ONE ×3 (11:04)
[2021-10-18] MEDS ORDERED: PHENYLEPHRINE DRIP 40 MG/250 ML PREMIX IV ONE (12:21)
[2021-10-18] MEDS: ZINC OXIDE PASTE 113 GM TUBE TOP SCH ×2 (12:37→20:31)
[2021-10-18] MEDS: LORATADINE 10 MG TABLET PO SCH (12:37)
[2021-10-18] MEDS: FEXOFENADINE 180 MG TABLET PO SCH (12:37)
[2021-10-18] MEDS: ASPIRIN EC 81 MG TABLET PO SCH (12:37)
[2021-10-18] MEDS: AMIODARONE 200 MG TABLET PO SCH (12:37)
[2021-10-18] MEDS: carvediloL 6.25 MG TABLET PO SCH (12:37)
[2021-10-18] MEDS: NON-FORMULARY MEDICATION (Fluticasone Furoate-Vilanterol [Breo Ellipta] 200-25 mcg/dose Bl INH SCH (12:38)
[2021-10-18] MEDS: FAMOTIDINE 20 MG TABLET PO SCH (12:38)
[2021-10-18] MEDS: SIMETHICONE CHEW 125 MG TABLET PO SCH ×4 (12:38→20:31)
[2021-10-18] MEDS: POTASSIUM CHLORIDE 20 MEQ TABLET PO SCH (12:38)
[2021-10-18 13:18] LABS: ABG Base Excess -3.8 MMOL/L (-2.5-2.5); ABG HCO3 21.2 MMOL/L (20-26); ABG Oxygen Saturation 92.5 % (95-100); ABG PCO2 52.8 MM HG (35-48); ABG PH 7.266 (7.35-7.45); ABG PO2 80.9 MM HG (80-95); ABG TCO2 21.5 MMOL/L (23-27); Glucose Heart Surgery 122 MG/DL (74-106); Hematocrit Heart Surgery 38.7 PERCENT (37-47); Hemoglobin Heart Surgery 12.6 G/DL (12.0-16.0); Potassium Heart/CVR 4.8 MMOL/L (3.5-5.1)
[2021-10-18] MEDS: PANTOPRAZOLE 40 MG VIAL IV SCH (13:33)
[2021-10-18] MEDS: FLUCONAZOLE INJ 200 MG/100 ML PREMIX IV SCH (13:51)
[2021-10-18] MEDS ORDERED: FUROSEMIDE 40 MG/4 ML VIAL IV ONE (13:55)
[2021-10-18] MEDS ORDERED: MIDAZOLAM 100 MG in SODIUM CHLORIDE 0.9% 80 ML IV PRN (13:59)
[2021-10-18] MEDS: PHENYLEPHRINE DRIP 40 MG/250 ML PREMIX IV PRN ×2 (14:00→23:39)
[2021-10-18 14:06] LABS: ABG Base Excess -4.7 MMOL/L (-2.5-2.5); ABG HCO3 20.5 MMOL/L (20-26); ABG Oxygen Saturation 96.2 % (95-100); ABG PCO2 44.8 MM HG (35-48); ABG PH 7.297 (7.35-7.45); ABG TCO2 19.5 MMOL/L (23-27)
[2021-10-18] MEDS: LACTATED RINGERS 1,000 ML IV SCH ×2 (14:23→23:06)
[2021-10-18 14:38] LABS: Basophils # 0.1 10*3/uL (0.0-0.2); Basophils % 0.2 % (0.0-0.8); Eosinophils % 0.1 % (0.00-10.9); Hematocrit 38.1 VOL% (35.7-47.0); Hemoglobin 12.6 GM/DL (12.0-16.0); Immature Granulocytes % 5.1 %; Immature Granulocytes Absolute 1.38 #; Lymphocytes # 2.6 10*3/uL (1.4-4.0); Lymphocytes % 9.5 % (21.3-54.2); Mean Corpuscular HGB Conc 33.1 GM/DL (32-36); Mean Corpuscular Volume 94.8 FL (87-102); Mean Platelet Volume 10.8 FL (9.6-12.0); Monocytes # 1.2 10*3/uL (0.11-0.8); Monocytes % 4.3 % (1.7-12.7); Neutrophils % 80.8 % (38.7-73.9); Platelet Count 591 T/CUMM (130-400); Red Blood Count 4.02 MC/CUMM (3.8-5.5); Red Cell Distribution Width 16.1 % (9.3-17.3); White Blood Count 27.2 T/CUMM (4-12)
[2021-10-18 14:55] LABS: Calcium 6.9 MG/DL (8.5-10.1); Osmolality,Calculated 276.8 MOS/KG (273-304); Potassium 5.1 MMOL/L (3.5-5.1)
[2021-10-18] MEDS: DILTIAZEM INJ 100 MG in SODIUM CHLORIDE 0.9% 100 ML IV SCH (15:12)
[2021-10-18 15:23] LABS: Band Neutrophils 1 % (0-10); Lymphocytes 8 % (20-55); Metamyelocytes 3 %; Myelocytes 1 %; Platelet Estimate Increased; Total Cells Counted 100
[2021-10-18] MEDS: fentaNYL INJ 1,250 MCG in SODIUM CHLORIDE 0.9% 225 ML IV PRN (15:26)
[2021-10-18] MEDS: LEVOTHYROXINE 100 MCG VIAL IV SCH (15:31)
[2021-10-18] MEDS ORDERED: ALBUMIN 5% 25 GM/500 ML VIAL IV ONE (16:45)
[2021-10-18] MEDS ORDERED: LACTATED RINGERS 250 ML IV ONE (17:00)
[2021-10-18] MEDS ORDERED: ZINC/COPPER/MANGANESE/SELENIUM 1 ML, MULTIVITAMIN INJ 10 ML in AMINO ACIDS/DEXT/LYTES 5... IV SCH (17:00)
[2021-10-18] MEDS ORDERED: DEXTROSE 10% 1,000 ML IV PRN (17:00)
[2021-10-18] MEDS: FLUTICASONE 50 MCG NASAL SPRAY 16 GM BOTTLE BOTH NARES SCH (20:31)
[2021-10-18] MEDS ORDERED: MAGNESIUM SULF RIDER 2 GM/50 ML PREMIX IV ONE (22:39)
[2021-10-19] MEDS: INSULIN REGULAR 100 UNIT/ML SUBCUT SCH ×4 (00:20→17:39)
[2021-10-19] MEDS: MEROPENEM 500 MG in SODIUM CHLORIDE 0.9% 100 ML IV SCH ×4 (00:52→18:27)
[2021-10-19 03:28] LABS: ABG Base Excess -1.7 MMOL/L (-2.5-2.5); ABG Oxygen Saturation 97.6 % (95-100); ABG PCO2 33.2 MM HG (35-48); ABG PH 7.429 (7.35-7.45); ABG TCO2 19.9 MMOL/L (23-27)
[2021-10-19 03:30] LABS: Basophils # 0.1 10*3/uL (0.0-0.2); Basophils % 0.2 % (0.0-0.8); Eosinophils % 0.1 % (0.00-10.9); Hematocrit 33.2 VOL% (35.7-47.0); Hemoglobin 10.7 GM/DL (12.0-16.0); Immature Granulocytes % 5.2 %; Immature Granulocytes Absolute 1.49 #; Lymphocytes # 2.9 10*3/uL (1.4-4.0); Lymphocytes % 10.2 % (21.3-54.2); Mean Corpuscular HGB Conc 32.2 GM/DL (32-36); Mean Corpuscular Volume 95.4 FL (87-102); Mean Platelet Volume 10.6 FL (9.6-12.0); Monocytes # 1.2 10*3/uL (0.11-0.8); Monocytes % 4.3 % (1.7-12.7); Platelet Count 540 T/CUMM (130-400); Red Blood Count 3.48 MC/CUMM (3.8-5.5); Red Cell Distribution Width 15.9 % (9.3-17.3); White Blood Count 28.5 T/CUMM (4-12)
[2021-10-19 03:50] LABS: Eosinophils 2 % (0-10); Lymphocytes 8 % (20-55); Platelet Estimate Adequate; Total Cells Counted 100
[2021-10-19 03:56] LABS: Alanine Aminotransferase 13 U/L (13-56); Albumin 1.6 G/DL (3.4-5.0); Alkaline Phosphatase 182 U/L (45-117); Aspartate Amino Transferase 14 U/L (0-37); Bilirubin,Total < 0.39 MG/DL (0.20-1.00); Blood Urea Nitrogen 25 MG/DL (7-18); Calcium 7.1 MG/DL (8.5-10.1); Carbon Dioxide 23 MMOL/L (21-32); Chloride 109 MMOL/L (98-107); Estimated Glom Filtration Rate 70 ML/MIN; Glucose 135 MG/DL (74-106); Osmolality,Calculated 280.7 MOS/KG (273-304); Potassium 4.6 MMOL/L (3.5-5.1); Sodium 138 MMOL/L (136-145); Total Protein 4.1 G/DL (6.4-8.2)
[2021-10-19] MEDS ORDERED: LACTATED RINGERS 250 ML IV ONE (05:00)
[2021-10-19] MEDS: PHENYLEPHRINE DRIP 40 MG/250 ML PREMIX IV PRN ×4 (05:19→22:20)
[2021-10-19] MEDS ORDERED: ALBUMIN 5% 25 GM/500 ML VIAL IV ONE (05:54)
[2021-10-19] MEDS: LACTATED RINGERS 1,000 ML IV SCH ×4 (06:06→23:07)
[2021-10-19] MEDS: LEVOTHYROXINE 100 MCG VIAL IV SCH (06:14)
[2021-10-19] MEDS: BUDESONIDE 0.25 MG/2 ML NEB RESP TX SCH ×2 (06:59→19:20)
[2021-10-19] MEDS: ALBUTEROL/IPRATROPIUM 3 ML NEB RESP TX SCH ×3 (06:59→22:05)
[2021-10-19] MEDS ORDERED: FUROSEMIDE 40 MG/4 ML VIAL IV SCH (08:00)
[2021-10-19] MEDS: SIMETHICONE CHEW 125 MG TABLET PO SCH ×2 (10:28→13:01)
[2021-10-19] MEDS: PANTOPRAZOLE 40 MG VIAL IV SCH (10:31)
[2021-10-19] MEDS: FLUCONAZOLE INJ 200 MG/100 ML PREMIX IV SCH (10:31)
[2021-10-19] MEDS: ZINC OXIDE PASTE 113 GM TUBE TOP SCH ×2 (11:51→22:16)
[2021-10-19] MEDS: fentaNYL INJ 1,250 MCG in SODIUM CHLORIDE 0.9% 225 ML IV PRN (13:09)
[2021-10-19] MEDS: FAT EMULSION 20% 250 ML IV SCH (14:20)
[2021-10-19] MEDS: ZINC/COPPER/MANGANESE/SELENIUM 1 ML, MULTIVITAMIN INJ 10 ML in AMINO ACIDS/DEXT/LYTES 5... IV SCH (17:12)
[2021-10-19] MEDS: DILTIAZEM INJ 100 MG in SODIUM CHLORIDE 0.9% 100 ML IV SCH (19:00)
[2021-10-20] MEDS: MEROPENEM 500 MG in SODIUM CHLORIDE 0.9% 100 ML IV SCH ×4 (00:52→18:33)
[2021-10-20] MEDS: INSULIN REGULAR 100 UNIT/ML SUBCUT SCH ×4 (00:52→18:30)
[2021-10-20] MEDS: PHENYLEPHRINE DRIP 40 MG/250 ML PREMIX IV PRN ×2 (03:38→10:29)
[2021-10-20] MEDS: fentaNYL INJ 1,250 MCG in SODIUM CHLORIDE 0.9% 225 ML IV PRN ×2 (03:55→09:34)
[2021-10-20 04:11] LABS: ABG HCO3 21.9 MMOL/L (20-26); ABG Oxygen Saturation 98.4 % (95-100); ABG PH 7.286 (7.35-7.45); ABG TCO2 22.5 MMOL/L (23-27)
[2021-10-20 04:13] LABS: Basophils # 0.1 10*3/uL (0.0-0.2); Basophils % 0.2 % (0.0-0.8); Eosinophils # 0.3 10*3/uL (0.0-0.87); Eosinophils % 1.1 % (0.00-10.9); Hemoglobin 8.1 GM/DL (12.0-16.0); Immature Granulocytes % 8.7 %; Immature Granulocytes Absolute 2.15 #; Lymphocytes # 2.5 10*3/uL (1.4-4.0); Mean Corpuscular Volume 100.7 FL (87-102); Mean Platelet Volume 10.6 FL (9.6-12.0); Monocytes # 1.8 10*3/uL (0.11-0.8); Monocytes % 7.4 % (1.7-12.7); Neutrophils % 72.6 % (38.7-73.9); Platelet Count 422 T/CUMM (130-400); Red Blood Count 2.68 MC/CUMM (3.8-5.5); Red Cell Distribution Width 16.3 % (9.3-17.3); White Blood Count 24.8 T/CUMM (4-12)
[2021-10-20 04:29] LABS: Calcium 7.4 MG/DL (8.5-10.1); Osmolality,Calculated 281.8 MOS/KG (273-304); Potassium 4.5 MMOL/L (3.5-5.1)
[2021-10-20 04:32] LABS: Band Neutrophils 1 % (0-10); Eosinophils 1 % (0-10); Lymphocytes 8 % (20-55); Total Cells Counted 100
[2021-10-20 04:33] LABS: Platelet Estimate Adequate
[2021-10-20] MEDS: DILTIAZEM INJ 100 MG in SODIUM CHLORIDE 0.9% 100 ML IV SCH ×2 (04:35→14:46)
[2021-10-20] MEDS: LACTATED RINGERS 1,000 ML IV SCH ×2 (05:55→10:51)
[2021-10-20] MEDS: LEVOTHYROXINE 100 MCG VIAL IV SCH (06:20)
[2021-10-20] MEDS: ALBUTEROL/IPRATROPIUM 3 ML NEB RESP TX SCH ×3 (07:00→23:40)
[2021-10-20] MEDS: BUDESONIDE 0.25 MG/2 ML NEB RESP TX SCH ×2 (07:00→19:06)
[2021-10-20 08:34] LABS: ABG Base Excess -2.3 MMOL/L (-2.5-2.5); ABG HCO3 22.5 MMOL/L (20-26); ABG Oxygen Saturation 98.3 % (95-100); ABG PCO2 44.5 MM HG (35-48); ABG PH 7.331 (7.35-7.45); ABG TCO2 22.2 MMOL/L (23-27)
[2021-10-20] MEDS: PANTOPRAZOLE 40 MG VIAL IV SCH (10:29)
[2021-10-20] MEDS: ZINC OXIDE PASTE 113 GM TUBE TOP SCH ×2 (10:31→21:18)
[2021-10-20] MEDS: FLUCONAZOLE INJ 200 MG/100 ML PREMIX IV SCH (10:33)
[2021-10-20 13:39] LABS: ABG Base Excess -2.1 MMOL/L (-2.5-2.5); ABG HCO3 22.7 MMOL/L (20-26); ABG Oxygen Saturation 98.3 % (95-100); ABG PCO2 45.7 MM HG (35-48); ABG PH 7.327 (7.35-7.45); ABG TCO2 22.4 MMOL/L (23-27)
[2021-10-20] MEDS: ZINC/COPPER/MANGANESE/SELENIUM 1 ML, MULTIVITAMIN INJ 10 ML in AMINO ACIDS/DEXT/LYTES 5... IV SCH (16:59)
[2021-10-21] MEDS: INSULIN REGULAR 100 UNIT/ML SUBCUT SCH ×4 (00:48→18:03)
[2021-10-21] MEDS: MEROPENEM 500 MG in SODIUM CHLORIDE 0.9% 100 ML IV SCH ×4 (00:48→18:13)
[2021-10-21] MEDS: fentaNYL INJ 1,250 MCG in SODIUM CHLORIDE 0.9% 225 ML IV PRN ×2 (03:17→20:45)
[2021-10-21 04:20] LABS: Basophils # 0.1 10*3/uL (0.0-0.2); Basophils % 0.3 % (0.0-0.8); Eosinophils # 0.3 10*3/uL (0.0-0.87); Eosinophils % 1.6 % (0.00-10.9); Hematocrit 26.1 VOL% (35.7-47.0); Hemoglobin 7.9 GM/DL (12.0-16.0); Immature Granulocytes % 10.6 %; Immature Granulocytes Absolute 1.94 #; Lymphocytes # 1.8 10*3/uL (1.4-4.0); Mean Corpuscular HGB Conc 30.3 GM/DL (32-36); Mean Corpuscular Volume 101.6 FL (87-102); Mean Platelet Volume 10.6 FL (9.6-12.0); Monocytes # 1.6 10*3/uL (0.11-0.8); Monocytes % 8.8 % (1.7-12.7); Neutrophils % 68.7 % (38.7-73.9); Platelet Count 368 T/CUMM (130-400); Red Blood Count 2.57 MC/CUMM (3.8-5.5); Red Cell Distribution Width 16.4 % (9.3-17.3); White Blood Count 18.3 T/CUMM (4-12)
[2021-10-21 04:46] LABS: Band Neutrophils 1 % (0-10); Eosinophils 2 % (0-10); Hypochromia 1+; Lymphocytes 16 % (20-55); Platelet Estimate Normal; Total Cells Counted 100
[2021-10-21 04:50] LABS: Calcium 7.2 MG/DL (8.5-10.1); Osmolality,Calculated 287.3 MOS/KG (273-304); Potassium 4.7 MMOL/L (3.5-5.1)
[2021-10-21 05:43] LABS: ABG Base Excess -0.5 MMOL/L (-2.5-2.5); ABG Oxygen Saturation 98.8 % (95-100); ABG PCO2 47.1 MM HG (35-48); ABG TCO2 23.8 MMOL/L (23-27)
[2021-10-21] MEDS: LEVOTHYROXINE 100 MCG VIAL IV SCH (07:01)
[2021-10-21] MEDS: BUDESONIDE 0.25 MG/2 ML NEB RESP TX SCH ×2 (07:35→18:10)
[2021-10-21] MEDS: ALBUTEROL/IPRATROPIUM 3 ML NEB RESP TX SCH ×4 (07:35→23:48)
[2021-10-21] MEDS: FUROSEMIDE 40 MG/4 ML VIAL IV SCH ×2 (08:43→18:16)
[2021-10-21] MEDS: PANTOPRAZOLE 40 MG VIAL IV SCH (08:46)
[2021-10-21] MEDS: FLUCONAZOLE INJ 200 MG/100 ML PREMIX IV SCH (08:46)
[2021-10-21] MEDS: ZINC OXIDE PASTE 113 GM TUBE TOP SCH ×2 (08:47→20:18)
[2021-10-21] MEDS: FAT EMULSION 20% 250 ML IV SCH (08:48)
[2021-10-21] MEDS: LACTATED RINGERS 1,000 ML IV SCH ×2 (08:48→10:35)
[2021-10-21] MEDS: DILTIAZEM INJ 100 MG in SODIUM CHLORIDE 0.9% 100 ML IV SCH (14:31)
[2021-10-21] MEDS ORDERED: HEPARIN/NACL 0.9% 2 UNITS/ML 1,000 UNIT/500 ML BAG IV ONE (16:21)
[2021-10-21] MEDS: ZINC/COPPER/MANGANESE/SELENIUM 1 ML, MULTIVITAMIN INJ 10 ML in AMINO ACIDS/DEXT/LYTES 5... IV SCH (16:51)
[2021-10-21] MEDS: HEPARIN/NACL 0.9% 2 UNITS/ML 1,000 UNIT/500 ML BAG IV SCH (18:18)
[2021-10-21] MEDS: PHENYLEPHRINE DRIP 40 MG/250 ML PREMIX IV PRN (20:00)
[2021-10-22] MEDS: INSULIN REGULAR 100 UNIT/ML SUBCUT SCH ×4 (00:14→18:02)
[2021-10-22] MEDS: MEROPENEM 500 MG in SODIUM CHLORIDE 0.9% 100 ML IV SCH ×4 (00:58→18:01)
[2021-10-22 03:36] LABS: ABG Base Excess 4.1 MMOL/L (-2.5-2.5); ABG HCO3 28.1 MMOL/L (20-26); ABG Oxygen Saturation 98.4 % (95-100); ABG PCO2 46.4 MM HG (35-48); ABG PH 7.408 (7.35-7.45); ABG TCO2 27.2 MMOL/L (23-27)
[2021-10-22 03:37] LABS: Basophils # 0.1 10*3/uL (0.0-0.2); Basophils % 0.5 % (0.0-0.8); Eosinophils # 0.3 10*3/uL (0.0-0.87); Eosinophils % 1.2 % (0.00-10.9); Hematocrit 28.4 VOL% (35.7-47.0); Hemoglobin 8.8 GM/DL (12.0-16.0); Immature Granulocytes % 26.5 %; Immature Granulocytes Absolute 6.56 #; Lymphocytes # 2.4 10*3/uL (1.4-4.0); Lymphocytes % 9.9 % (21.3-54.2); Mean Corpuscular Volume 99.6 FL (87-102); Mean Platelet Volume 10.2 FL (9.6-12.0); Monocytes # 2.5 10*3/uL (0.11-0.8); Monocytes % 10.3 % (1.7-12.7); NRBC # 0.03 10*3/uL; Neutrophils % 51.6 % (38.7-73.9); Platelet Count 397 T/CUMM (130-400); Red Blood Count 2.85 MC/CUMM (3.8-5.5); Red Cell Distribution Width 16.1 % (9.3-17.3); White Blood Count 24.7 T/CUMM (4-12)
[2021-10-22 03:51] LABS: Calcium 7.8 MG/DL (8.5-10.1); Osmolality,Calculated 283.5 MOS/KG (273-304); Potassium 4.5 MMOL/L (3.5-5.1)
[2021-10-22 04:13] LABS: Atypical Lymphocytes Few; Band Neutrophils 1 % (0-10); Eosinophils 3 % (0-10); Lymphocytes 17 % (20-55); Metamyelocytes 4 %; Myelocytes 1 %; Promyelocytes 1 %; Total Cells Counted 100
[2021-10-22 04:14] LABS: Macrocytosis Slight
[2021-10-22] MEDS: PHENYLEPHRINE DRIP 40 MG/250 ML PREMIX IV PRN (04:57)
[2021-10-22] MEDS: LEVOTHYROXINE 100 MCG VIAL IV SCH (06:05)
[2021-10-22] MEDS: BUDESONIDE 0.25 MG/2 ML NEB RESP TX SCH ×2 (07:17→19:11)
[2021-10-22] MEDS: ALBUTEROL/IPRATROPIUM 3 ML NEB RESP TX SCH ×3 (07:17→23:30)
[2021-10-22] MEDS: FLUCONAZOLE INJ 200 MG/100 ML PREMIX IV SCH (08:44)
[2021-10-22] MEDS: FUROSEMIDE 40 MG/4 ML VIAL IV SCH (08:45)
[2021-10-22] MEDS: PANTOPRAZOLE 40 MG VIAL IV SCH (08:48)
[2021-10-22] MEDS: ZINC OXIDE PASTE 113 GM TUBE TOP SCH ×2 (13:29→19:25)
[2021-10-22] MEDS: fentaNYL INJ 1,250 MCG in SODIUM CHLORIDE 0.9% 225 ML IV PRN (13:29)
[2021-10-22] MEDS: LACTATED RINGERS 1,000 ML IV SCH (13:31)
[2021-10-22] MEDS: DILTIAZEM INJ 100 MG in SODIUM CHLORIDE 0.9% 100 ML IV SCH (13:53)
[2021-10-22] MEDS: ZINC/COPPER/MANGANESE/SELENIUM 1 ML, MULTIVITAMIN INJ 10 ML in AMINO ACIDS/DEXT/LYTES 5... IV SCH (15:56)
[2021-10-22] MEDS: HEPARIN/NACL 0.9% 2 UNITS/ML 1,000 UNIT/500 ML BAG IV SCH (18:46)
[2021-10-23] MEDS: MEROPENEM 500 MG in SODIUM CHLORIDE 0.9% 100 ML IV SCH ×4 (00:37→18:32)
[2021-10-23] MEDS: INSULIN REGULAR 100 UNIT/ML SUBCUT SCH ×4 (00:38→17:30)
[2021-10-23 05:04] LABS: Basophils # 0.1 10*3/uL (0.0-0.2); Basophils % 0.4 % (0.0-0.8); Eosinophils # 0.3 10*3/uL (0.0-0.87); Eosinophils % 1.7 % (0.00-10.9); Hemoglobin 8.3 GM/DL (12.0-16.0); Immature Granulocytes % 22.1 %; Lymphocytes # 1.8 10*3/uL (1.4-4.0); Lymphocytes % 9.2 % (21.3-54.2); Mean Corpuscular HGB Conc 30.7 GM/DL (32-36); Mean Corpuscular Volume 99.6 FL (87-102); Mean Platelet Volume 10.4 FL (9.6-12.0); Monocytes % 10.1 % (1.7-12.7); Neutrophils % 56.5 % (38.7-73.9); Platelet Count 265 T/CUMM (130-400); Red Blood Count 2.71 MC/CUMM (3.8-5.5); Red Cell Distribution Width 15.8 % (9.3-17.3); White Blood Count 19.9 T/CUMM (4-12)
[2021-10-23 05:20] LABS: Calcium 7.9 MG/DL (8.5-10.1); Osmolality,Calculated 286.3 MOS/KG (273-304); Potassium 4.6 MMOL/L (3.5-5.1)
[2021-10-23 05:23] LABS: Band Neutrophils 9 % (0-10); Eosinophils 2 % (0-10); Lymphocytes 13 % (20-55); Platelet Estimate Adequate; Total Cells Counted 100
[2021-10-23 05:24] LABS: Hypochromia Slight
[2021-10-23 06:27] LABS: Arterial Base Excess iSTAT 7 MMOL/L (-2.5-2.5); Arterial Bicarbonate iSTAT 32.6 MMOL/L (20-26); Arterial O2 Saturation iSTAT 97 % (95-100); Arterial PCO2 iSTAT 49 MM HG (35-48); Arterial PO2 iSTAT 93 MM HG (80-95); Arterial Total CO2 iSTAT 34 MMO/L (23-27); Arterial pH iSTAT 7.433 (7.35-7.45)
[2021-10-23] MEDS: LEVOTHYROXINE 100 MCG VIAL IV SCH (07:02)
[2021-10-23] MEDS: ALBUTEROL/IPRATROPIUM 3 ML NEB RESP TX SCH (07:05)
[2021-10-23] MEDS: BUDESONIDE 0.25 MG/2 ML NEB RESP TX SCH (07:05)
[2021-10-23] MEDS: fentaNYL INJ 1,250 MCG in SODIUM CHLORIDE 0.9% 225 ML IV PRN (07:27)
[2021-10-23] MEDS ORDERED: MAGNESIUM SULF RIDER 2 GM/50 ML PREMIX IV ONE (07:39)
[2021-10-23] MEDS: FAT EMULSION 20% 250 ML IV SCH (08:08)
[2021-10-23] MEDS: FUROSEMIDE 40 MG/4 ML VIAL IV SCH (08:08)
[2021-10-23] MEDS: PANTOPRAZOLE 40 MG VIAL IV SCH (08:09)
[2021-10-23] MEDS: ZINC OXIDE PASTE 113 GM TUBE TOP SCH ×2 (08:11→20:41)
[2021-10-23] MEDS: FLUCONAZOLE INJ 200 MG/100 ML PREMIX IV SCH (08:30)
[2021-10-23] MEDS: ENOXAPARIN 40 MG/0.4 ML SYRINGE SUBCUT SCH (09:42)
[2021-10-23] MEDS: DILTIAZEM INJ 100 MG in SODIUM CHLORIDE 0.9% 100 ML IV SCH (12:50)
[2021-10-23] MEDS: ZINC/COPPER/MANGANESE/SELENIUM 1 ML, MULTIVITAMIN INJ 10 ML in AMINO ACIDS/DEXT/LYTES 5... IV SCH (15:45)
[2021-10-23] MEDS: LACTATED RINGERS 1,000 ML IV SCH (17:30)
[2021-10-23] MEDS: HEPARIN/NACL 0.9% 2 UNITS/ML 1,000 UNIT/500 ML BAG IV SCH (17:30)
[2021-10-23] MEDS: hydrALAZINE 20 MG/1 ML VIAL IV PRN (19:14)
[2021-10-23] MEDS: HYDROmorphone 1 MG/1 ML SYRINGE IV PRN (19:48)
[2021-10-24] MEDS: ALBUTEROL/IPRATROPIUM 3 ML NEB RESP TX SCH ×4 (00:04→22:23)
[2021-10-24] MEDS: BUDESONIDE 0.25 MG/2 ML NEB RESP TX SCH ×3 (00:04→22:23)
[2021-10-24] MEDS: INSULIN REGULAR 100 UNIT/ML SUBCUT SCH ×5 (01:01→23:09)
[2021-10-24] MEDS: MEROPENEM 500 MG in SODIUM CHLORIDE 0.9% 100 ML IV SCH ×4 (01:17→18:01)
[2021-10-24] MEDS: LEVOTHYROXINE 100 MCG VIAL IV SCH (06:34)
[2021-10-24 07:40] LABS: Basophils # 0.1 10*3/uL (0.0-0.2); Basophils % 0.3 % (0.0-0.8); Eosinophils # 0.3 10*3/uL (0.0-0.87); Eosinophils % 1.5 % (0.00-10.9); Hematocrit 25.5 VOL% (35.7-47.0); Immature Granulocytes % 20.5 %; Lymphocytes # 2.1 10*3/uL (1.4-4.0); Lymphocytes % 10.7 % (21.3-54.2); Mean Corpuscular HGB Conc 31.4 GM/DL (32-36); Mean Corpuscular Volume 98.5 FL (87-102); Mean Platelet Volume 10.1 FL (9.6-12.0); Monocytes # 1.4 10*3/uL (0.11-0.8); Monocytes % 7.1 % (1.7-12.7); Neutrophils % 59.9 % (38.7-73.9); Platelet Count 196 T/CUMM (130-400); Red Blood Count 2.59 MC/CUMM (3.8-5.5); Red Cell Distribution Width 15.5 % (9.3-17.3)
[2021-10-24 08:00] LABS: Band Neutrophils 8 % (0-10); Eosinophils 2 % (0-10); Lymphocytes 11 % (20-55); Platelet Estimate Adequate; Total Cells Counted 100
[2021-10-24 08:01] LABS: Hypochromia Slight
[2021-10-24] MEDS: ENOXAPARIN 40 MG/0.4 ML SYRINGE SUBCUT SCH (08:01)
[2021-10-24] MEDS: PANTOPRAZOLE 40 MG VIAL IV SCH (08:01)
[2021-10-24] MEDS: FUROSEMIDE 40 MG/4 ML VIAL IV SCH (08:02)
[2021-10-24 08:05] LABS: Osmolality,Calculated 279.7 MOS/KG (273-304); Potassium 4.1 MMOL/L (3.5-5.1)
[2021-10-24] MEDS: ZINC OXIDE PASTE 113 GM TUBE TOP SCH ×2 (08:05→20:37)
[2021-10-24] MEDS: FLUCONAZOLE INJ 200 MG/100 ML PREMIX IV SCH (08:31)
[2021-10-24] MEDS: HYDROmorphone 1 MG/1 ML SYRINGE IV PRN ×2 (09:44→21:52)
[2021-10-24] MEDS: LACTATED RINGERS 1,000 ML IV SCH (10:16)
[2021-10-24] MEDS: DILTIAZEM INJ 100 MG in SODIUM CHLORIDE 0.9% 100 ML IV SCH (12:58)
[2021-10-24] MEDS: ZINC/COPPER/MANGANESE/SELENIUM 1 ML, MULTIVITAMIN INJ 10 ML in AMINO ACIDS/DEXT/LYTES 5... IV SCH (15:19)
[2021-10-24] MEDS: carvediloL 6.25 MG TABLET PO SCH (16:33)
[2021-10-24] MEDS: HEPARIN/NACL 0.9% 2 UNITS/ML 1,000 UNIT/500 ML BAG IV SCH (17:34)
[2021-10-24] MEDS: hydrALAZINE 20 MG/1 ML VIAL IV PRN (20:34)
[2021-10-25] MEDS: MEROPENEM 500 MG in SODIUM CHLORIDE 0.9% 100 ML IV SCH ×4 (00:24→18:30)
[2021-10-25] MEDS: ACETAMINOPHEN 325 MG TABLET PO PRN (01:58)
[2021-10-25] MEDS: LACTATED RINGERS 1,000 ML IV SCH ×2 (02:11→12:57)
[2021-10-25 03:43] LABS: Basophils # 0.1 10*3/uL (0.0-0.2); Basophils % 0.5 % (0.0-0.8); Eosinophils # 0.3 10*3/uL (0.0-0.87); Eosinophils % 1.3 % (0.00-10.9); Hematocrit 27.6 VOL% (35.7-47.0); Hemoglobin 8.6 GM/DL (12.0-16.0); Immature Granulocytes Absolute 3.32 #; Lymphocytes # 1.8 10*3/uL (1.4-4.0); Lymphocytes % 9.2 % (21.3-54.2); Mean Corpuscular HGB Conc 31.2 GM/DL (32-36); Mean Corpuscular Volume 96.8 FL (87-102); Mean Platelet Volume 10.3 FL (9.6-12.0); Monocytes # 1.4 10*3/uL (0.11-0.8); Monocytes % 7.1 % (1.7-12.7); NRBC # 0.03 10*3/uL; Neutrophils % 64.9 % (38.7-73.9); Platelet Count 150 T/CUMM (130-400); Red Blood Count 2.85 MC/CUMM (3.8-5.5); Red Cell Distribution Width 15.3 % (9.3-17.3); White Blood Count 19.6 T/CUMM (4-12)
[2021-10-25] MEDS: hydrALAZINE 20 MG/1 ML VIAL IV PRN (03:57)
[2021-10-25 04:03] LABS: Band Neutrophils 3 % (0-10); Lymphocytes 10 % (20-55); Metamyelocytes 3 %; Myelocytes 4 %; Nucleated Red Blood Cells 1 (0-5); Promyelocytes 1 %; Total Cells Counted 100
[2021-10-25 04:04] LABS: Macrocytosis Slight; Platelet Estimate Adequate; Polychromasia Slight
[2021-10-25 04:09] LABS: Alanine Aminotransferase 12 U/L (13-56); Albumin 1.2 G/DL (3.4-5.0); Alkaline Phosphatase 107 U/L (45-117); Aspartate Amino Transferase 22 U/L (0-37); Bilirubin,Total < 0.39 MG/DL (0.20-1.00); Blood Urea Nitrogen 21 MG/DL (7-18); Carbon Dioxide 33 MMOL/L (21-32); Chloride 98 MMOL/L (98-107); Glucose 119 MG/DL (74-106); Osmolality,Calculated 271.2 MOS/KG (273-304); Potassium 4.2 MMOL/L (3.5-5.1); Sodium 134 MMOL/L (136-145); Total Protein 5.1 G/DL (6.4-8.2)
[2021-10-25] MEDS: INSULIN REGULAR 100 UNIT/ML SUBCUT SCH ×3 (06:35→17:51)
[2021-10-25] MEDS: BUDESONIDE 0.25 MG/2 ML NEB RESP TX SCH ×2 (07:18→23:51)
[2021-10-25] MEDS: LEVOTHYROXINE 100 MCG VIAL IV SCH (07:18)
[2021-10-25] MEDS: ALBUTEROL/IPRATROPIUM 3 ML NEB RESP TX SCH ×3 (07:18→23:51)
[2021-10-25] MEDS: carvediloL 6.25 MG TABLET PO SCH ×2 (09:35→17:41)
[2021-10-25] MEDS: ASPIRIN EC 81 MG TABLET PO SCH (09:35)
[2021-10-25] MEDS: ENOXAPARIN 40 MG/0.4 ML SYRINGE SUBCUT SCH (09:36)
[2021-10-25] MEDS: FUROSEMIDE 40 MG/4 ML VIAL IV SCH (09:36)
[2021-10-25] MEDS: FLUCONAZOLE INJ 200 MG/100 ML PREMIX IV SCH (09:36)
[2021-10-25] MEDS: PANTOPRAZOLE 40 MG VIAL IV SCH (09:36)
[2021-10-25] MEDS: ZINC OXIDE PASTE 113 GM TUBE TOP SCH ×2 (10:33→21:00)
[2021-10-25] MEDS: FAT EMULSION 20% 250 ML IV SCH ×2 (10:57→15:30)
[2021-10-25] MEDS: DILTIAZEM INJ 100 MG in SODIUM CHLORIDE 0.9% 100 ML IV SCH (13:01)
[2021-10-25] MEDS: ZINC/COPPER/MANGANESE/SELENIUM 1 ML, MULTIVITAMIN INJ 10 ML in AMINO ACIDS/DEXT/LYTES 5... IV SCH (17:00)
[2021-10-25] MEDS: HEPARIN/NACL 0.9% 2 UNITS/ML 1,000 UNIT/500 ML BAG IV SCH (17:44)
[2021-10-26] MEDS: MEROPENEM 500 MG in SODIUM CHLORIDE 0.9% 100 ML IV SCH ×4 (00:10→18:20)
[2021-10-26] MEDS: INSULIN REGULAR 100 UNIT/ML SUBCUT SCH ×4 (00:10→19:23)
[2021-10-26 06:33] LABS: Basophils # 0.3 10*3/uL (0.0-0.2); Basophils % 1.3 % (0.0-0.8); Eosinophils # 0.3 10*3/uL (0.0-0.87); Eosinophils % 1.2 % (0.00-10.9); Hemoglobin 9.9 GM/DL (12.0-16.0); Immature Granulocytes % 13.2 %; Immature Granulocytes Absolute 2.86 #; Lymphocytes # 1.5 10*3/uL (1.4-4.0); Lymphocytes % 6.9 % (21.3-54.2); Mean Corpuscular Volume 93.5 FL (87-102); Mean Platelet Volume 10.4 FL (9.6-12.0); Monocytes % 4.6 % (1.7-12.7); NRBC # 0.02 10*3/uL; Neutrophils % 72.8 % (38.7-73.9); Platelet Count 103 T/CUMM (130-400); Red Blood Count 3.21 MC/CUMM (3.8-5.5); Red Cell Distribution Width 15.3 % (9.3-17.3); White Blood Count 21.6 T/CUMM (4-12)
[2021-10-26] MEDS: ALBUTEROL/IPRATROPIUM 3 ML NEB RESP TX SCH ×2 (06:44→13:28)
[2021-10-26 06:54] LABS: Anisocytosis 1+; Band Neutrophils 16 % (0-10); Eosinophils 2 % (0-10); Lymphocytes 11 % (20-55); Metamyelocytes 3 %; Myelocytes 3 %; Platelet Estimate Adequate; Total Cells Counted 100
[2021-10-26 06:55] LABS: Albumin 1.4 G/DL (3.4-5.0); Bilirubin,Total 0.5 MG/DL (0.20-1.00); Calcium 8.3 MG/DL (8.5-10.1); Macrocytosis Slight; Osmolality,Calculated 272.2 MOS/KG (273-304); Potassium 3.8 MMOL/L (3.5-5.1); Total Protein 5.4 G/DL (6.4-8.2)
[2021-10-26] MEDS: ONDANSETRON 4 MG/2 ML VIAL IV PRN (08:35)
[2021-10-26] MEDS: LEVOTHYROXINE 100 MCG VIAL IV SCH (08:36)
[2021-10-26] MEDS: PANTOPRAZOLE 40 MG VIAL IV SCH (08:39)
[2021-10-26] MEDS: FUROSEMIDE 40 MG/4 ML VIAL IV SCH (08:40)
[2021-10-26] MEDS: ASPIRIN EC 81 MG TABLET PO SCH (08:47)
[2021-10-26] MEDS: carvediloL 6.25 MG TABLET PO SCH ×2 (08:47→17:45)
[2021-10-26] MEDS: FLUCONAZOLE INJ 200 MG/100 ML PREMIX IV SCH (09:45)
[2021-10-26] MEDS: ENOXAPARIN 40 MG/0.4 ML SYRINGE SUBCUT SCH (09:45)
[2021-10-26] MEDS: ZINC OXIDE PASTE 113 GM TUBE TOP SCH ×2 (10:21→20:40)
[2021-10-26] MEDS ORDERED: MAGNESIUM SULF RIDER 2 GM/50 ML PREMIX IV ONE (11:42)
[2021-10-26] MEDS: BUDESONIDE 0.25 MG/2 ML NEB RESP TX SCH ×2 (13:28→20:27)
[2021-10-26] MEDS: LACTATED RINGERS 1,000 ML IV SCH (13:30)
[2021-10-26] MEDS: ACETYLCYSTEINE 20% 800 MG/4 ML VIAL RESP TX SCH ×2 (13:31→23:24)
[2021-10-26] MEDS: ACETAMINOPHEN 325 MG TABLET PO PRN (14:30)
[2021-10-26] MEDS: DILTIAZEM INJ 100 MG in SODIUM CHLORIDE 0.9% 100 ML IV SCH (15:21)
[2021-10-26] MEDS: ZINC/COPPER/MANGANESE/SELENIUM 1 ML, MULTIVITAMIN INJ 10 ML in AMINO ACIDS/DEXT/LYTES 5... IV SCH (17:00)
[2021-10-26] MEDS: PROMETHAZINE INJ 12.5 MG in SODIUM CHLORIDE 0.9% 50 ML IV PRN (17:30)
[2021-10-26] MEDS: HEPARIN/NACL 0.9% 2 UNITS/ML 1,000 UNIT/500 ML BAG IV SCH (18:14)
[2021-10-26] MEDS ORDERED: ALBUTEROL 2.5 MG/3 ML NEB RESP TX PRN (21:48)
[2021-10-26] MEDS ORDERED: PROMETHAZINE 25 MG/1 ML VIAL IM PRN (21:50)
[2021-10-27] MEDS: ALBUTEROL 2.5 MG/3 ML NEB RESP TX SCH ×4 (00:40→18:45)
[2021-10-27] MEDS: INSULIN REGULAR 100 UNIT/ML SUBCUT SCH ×4 (01:22→17:18)
[2021-10-27] MEDS: MEROPENEM 500 MG in SODIUM CHLORIDE 0.9% 100 ML IV SCH ×4 (01:26→18:06)
[2021-10-27 04:10] LABS: Basophils # 0.2 10*3/uL (0.0-0.2); Basophils % 1.2 % (0.0-0.8); Eosinophils # 0.3 10*3/uL (0.0-0.87); Eosinophils % 1.6 % (0.00-10.9); Hemoglobin 8.5 GM/DL (12.0-16.0); Immature Granulocytes % 10.3 %; Immature Granulocytes Absolute 1.91 #; Lymphocytes # 1.7 10*3/uL (1.4-4.0); Mean Corpuscular HGB Conc 31.5 GM/DL (32-36); Mean Corpuscular Volume 96.8 FL (87-102); Mean Platelet Volume 11.6 FL (9.6-12.0); Monocytes # 1.2 10*3/uL (0.11-0.8); Monocytes % 6.5 % (1.7-12.7); Neutrophils % 71.4 % (38.7-73.9); Platelet Count 77 T/CUMM (130-400); Red Blood Count 2.79 MC/CUMM (3.8-5.5); Red Cell Distribution Width 15.4 % (9.3-17.3); White Blood Count 18.6 T/CUMM (4-12)
[2021-10-27 04:28] LABS: Band Neutrophils 5 % (0-10); Eosinophils 6 % (0-10); Lymphocytes 8 % (20-55); Platelet Estimate Decreased; Total Cells Counted 100
[2021-10-27 04:35] LABS: Albumin 1.4 G/DL (3.4-5.0); Bilirubin,Total 0.4 MG/DL (0.20-1.00); Osmolality,Calculated 275.1 MOS/KG (273-304); Potassium 3.7 MMOL/L (3.5-5.1); Total Protein 5.2 G/DL (6.4-8.2)
[2021-10-27] MEDS: LEVOTHYROXINE 100 MCG VIAL IV SCH (06:33)
[2021-10-27] MEDS: ACETYLCYSTEINE 20% 800 MG/4 ML VIAL RESP TX SCH (07:38)
[2021-10-27] MEDS: BUDESONIDE 0.25 MG/2 ML NEB RESP TX SCH ×2 (07:38→18:45)
[2021-10-27] MEDS: ASPIRIN EC 81 MG TABLET PO SCH (08:56)
[2021-10-27] MEDS: PANTOPRAZOLE 40 MG VIAL IV SCH (08:56)
[2021-10-27] MEDS: FUROSEMIDE 40 MG/4 ML VIAL IV SCH (08:56)
[2021-10-27] MEDS: carvediloL 6.25 MG TABLET PO SCH ×2 (08:56→17:08)
[2021-10-27] MEDS: ENOXAPARIN 40 MG/0.4 ML SYRINGE SUBCUT SCH (08:57)
[2021-10-27] MEDS: ZINC OXIDE PASTE 113 GM TUBE TOP SCH ×2 (08:57→20:15)
[2021-10-27] MEDS: FLUCONAZOLE INJ 200 MG/100 ML PREMIX IV SCH (08:57)
[2021-10-27] MEDS: LACTATED RINGERS 1,000 ML IV SCH (11:36)
[2021-10-27] MEDS ORDERED: POTASSIUM BICARB EFFERVESCENT 20 MEQ TAB.EFF PO PRN (12:18)
[2021-10-27] MEDS: DILTIAZEM INJ 100 MG in SODIUM CHLORIDE 0.9% 100 ML IV SCH (13:31)
[2021-10-27] MEDS: FAT EMULSION 20% 250 ML IV SCH (14:10)
[2021-10-27] MEDS: ZINC/COPPER/MANGANESE/SELENIUM 1 ML, MULTIVITAMIN INJ 10 ML in AMINO ACIDS/DEXT/LYTES 5... IV SCH (14:10)
[2021-10-27] MEDS: FAMOTIDINE 20 MG TABLET PO SCH (20:15)
[2021-10-28] MEDS: ALBUTEROL 2.5 MG/3 ML NEB RESP TX SCH ×4 (00:10→19:40)
[2021-10-28] MEDS: ACETYLCYSTEINE 20% 800 MG/4 ML VIAL RESP TX SCH ×3 (00:10→23:58)
[2021-10-28] MEDS: INSULIN REGULAR 100 UNIT/ML SUBCUT SCH ×4 (00:40→17:08)
[2021-10-28 04:25] LABS: Basophils # 0.2 10*3/uL (0.0-0.2); Basophils % 1.1 % (0.0-0.8); Eosinophils # 0.4 10*3/uL (0.0-0.87); Eosinophils % 2.3 % (0.00-10.9); Hemoglobin 7.8 GM/DL (12.0-16.0); Immature Granulocytes % 10.2 %; Immature Granulocytes Absolute 1.55 #; Lymphocytes # 1.7 10*3/uL (1.4-4.0); Lymphocytes % 11.3 % (21.3-54.2); Mean Corpuscular HGB Conc 32.5 GM/DL (32-36); Mean Corpuscular Volume 93.8 FL (87-102); Mean Platelet Volume 11.7 FL (9.6-12.0); Monocytes % 6.4 % (1.7-12.7); NRBC # 0.02 10*3/uL; Neutrophils % 68.7 % (38.7-73.9); Platelet Count 51 T/CUMM (130-400); Red Blood Count 2.56 MC/CUMM (3.8-5.5); Red Cell Distribution Width 15.4 % (9.3-17.3); White Blood Count 15.1 T/CUMM (4-12)
[2021-10-28 04:45] LABS: Band Neutrophils 2 % (0-10); Hypochromia 1+; Lymphocytes 10 % (20-55); Metamyelocytes 1 %; Platelet Estimate Decreased; Total Cells Counted 100
[2021-10-28 05:10] LABS: Alanine Aminotransferase 27 U/L (13-56); Albumin 1.5 G/DL (3.4-5.0); Alkaline Phosphatase 130 U/L (45-117); Aspartate Amino Transferase 46 U/L (0-37); Bilirubin,Total < 0.39 MG/DL (0.20-1.00); Blood Urea Nitrogen 26 MG/DL (7-18); Calcium 7.7 MG/DL (8.5-10.1); Carbon Dioxide 32 MMOL/L (21-32); Chloride 98 MMOL/L (98-107); Glucose 111 MG/DL (74-106); Osmolality,Calculated 275.1 MOS/KG (273-304); Potassium 3.5 MMOL/L (3.5-5.1); Sodium 135 MMOL/L (136-145); Total Protein 4.9 G/DL (6.4-8.2)
[2021-10-28] MEDS ORDERED: POTASSIUM CHLORIDE RIDER 20 MEQ/100 ML PREMIX IV PRN (05:22)
[2021-10-28] MEDS: MEROPENEM 500 MG in SODIUM CHLORIDE 0.9% 100 ML IV SCH ×2 (05:45)
[2021-10-28] MEDS: POTASSIUM CHLORIDE RIDER 10 MEQ/100 ML PREMIX IV PRN ×2 (05:45→08:08)
[2021-10-28] MEDS: LEVOTHYROXINE 100 MCG VIAL IV SCH (06:00)
[2021-10-28] MEDS: BUDESONIDE 0.25 MG/2 ML NEB RESP TX SCH ×2 (06:50→19:40)
[2021-10-28] MEDS: ZINC OXIDE PASTE 113 GM TUBE TOP SCH ×2 (08:06→22:33)
[2021-10-28] MEDS: ENOXAPARIN 40 MG/0.4 ML SYRINGE SUBCUT SCH (08:07)
[2021-10-28] MEDS: carvediloL 6.25 MG TABLET PO SCH ×2 (08:07→17:08)
[2021-10-28] MEDS: FAMOTIDINE 20 MG TABLET PO SCH ×2 (08:07→22:23)
[2021-10-28] MEDS: FUROSEMIDE 40 MG/4 ML VIAL IV SCH (08:07)
[2021-10-28] MEDS: ASPIRIN EC 81 MG TABLET PO SCH (08:07)
[2021-10-28] MEDS: FLUCONAZOLE INJ 200 MG/100 ML PREMIX IV SCH (08:38)
[2021-10-28] MEDS: LACTATED RINGERS 1,000 ML IV SCH ×2 (10:50→10:52)
[2021-10-28] MEDS: ZINC/COPPER/MANGANESE/SELENIUM 1 ML, MULTIVITAMIN INJ 10 ML in AMINO ACIDS/DEXT/LYTES 5... IV SCH ×2 (13:15→14:00)
[2021-10-29] MEDS: ALBUTEROL 2.5 MG/3 ML NEB RESP TX SCH ×4 (00:05→20:14)
[2021-10-29] MEDS: INSULIN REGULAR 100 UNIT/ML SUBCUT SCH ×4 (00:37→18:11)
[2021-10-29 05:04] LABS: Basophils # 0.1 10*3/uL (0.0-0.2); Basophils % 0.7 % (0.0-0.8); Eosinophils # 0.4 10*3/uL (0.0-0.87); Eosinophils % 2.2 % (0.00-10.9); Hematocrit 23.3 VOL% (35.7-47.0); Hemoglobin 7.6 GM/DL (12.0-16.0); Immature Granulocytes % 7.3 %; Immature Granulocytes Absolute 1.18 #; Lymphocytes # 1.9 10*3/uL (1.4-4.0); Lymphocytes % 11.8 % (21.3-54.2); Mean Corpuscular HGB Conc 32.6 GM/DL (32-36); Mean Corpuscular Volume 93.2 FL (87-102); Mean Platelet Volume 12.5 FL (9.6-12.0); Monocytes % 6.2 % (1.7-12.7); NRBC # 0.02 10*3/uL; Neutrophils % 71.8 % (38.7-73.9); Platelet Count 48 T/CUMM (130-400); Red Cell Distribution Width 15.3 % (9.3-17.3); White Blood Count 16.2 T/CUMM (4-12)
[2021-10-29 05:19] LABS: Calcium 7.9 MG/DL (8.5-10.1); Osmolality,Calculated 272.2 MOS/KG (273-304)
[2021-10-29 05:31] LABS: Eosinophils 2 % (0-10); Lymphocytes 12 % (20-55); Total Cells Counted 100
[2021-10-29 05:32] LABS: Platelet Estimate Decreased
[2021-10-29] MEDS ORDERED: SODIUM CHLORIDE 0.9% 1,000 ML IV PRN (07:26)
[2021-10-29] MEDS ORDERED: diphenhydrAMINE 50 MG/1 ML VIAL IV PRN (07:28)
[2021-10-29] MEDS: BUDESONIDE 0.25 MG/2 ML NEB RESP TX SCH ×2 (07:30→20:15)
[2021-10-29] MEDS ORDERED: ACETAMINOPHEN 500 MG TABLET PO PRN (07:31)
[2021-10-29] MEDS ORDERED: FUROSEMIDE 20 MG/2 ML VIAL IV PRN (07:31)
[2021-10-29] MEDS: FAMOTIDINE 20 MG TABLET PO SCH ×2 (10:14→22:19)
[2021-10-29] MEDS: ASPIRIN EC 81 MG TABLET PO SCH (10:15)
[2021-10-29] MEDS: carvediloL 6.25 MG TABLET PO SCH ×2 (10:15→17:50)
[2021-10-29] MEDS: LEVOTHYROXINE 100 MCG VIAL IV SCH (10:15)
[2021-10-29] MEDS: ZINC OXIDE PASTE 113 GM TUBE TOP SCH ×2 (10:18→22:25)
[2021-10-29] MEDS: FUROSEMIDE 40 MG/4 ML VIAL IV SCH (10:18)
[2021-10-29] MEDS: ZINC/COPPER/MANGANESE/SELENIUM 1 ML, MULTIVITAMIN INJ 10 ML in AMINO ACIDS/DEXT/LYTES 5... IV SCH (13:50)
[2021-10-29] MEDS: FAT EMULSION 20% 250 ML IV SCH (14:24)
[2021-10-29] MEDS ORDERED: diphenhydrAMINE 50 MG/1 ML VIAL ONE (15:20)
[2021-10-29] MEDS: LACTATED RINGERS 1,000 ML IV SCH (15:50)
[2021-10-30] MEDS: INSULIN REGULAR 100 UNIT/ML SUBCUT SCH ×4 (03:16→18:19)
[2021-10-30 04:38] LABS: Basophils # 0.2 10*3/uL (0.0-0.2); Basophils % 1.3 % (0.0-0.8); Eosinophils # 0.4 10*3/uL (0.0-0.87); Eosinophils % 2.6 % (0.00-10.9); Hematocrit 28.4 VOL% (35.7-47.0); Hemoglobin 9.4 GM/DL (12.0-16.0); Immature Granulocytes % 7.8 %; Lymphocytes # 1.9 10*3/uL (1.4-4.0); Lymphocytes % 11.6 % (21.3-54.2); Mean Corpuscular HGB Conc 33.1 GM/DL (32-36); Mean Corpuscular Volume 90.7 FL (87-102); Mean Platelet Volume 13.4 FL (9.6-12.0); Monocytes # 1.2 10*3/uL (0.11-0.8); Monocytes % 7.3 % (1.7-12.7); NRBC # 0.02 10*3/uL; Neutrophils % 69.4 % (38.7-73.9); Red Blood Count 3.13 MC/CUMM (3.8-5.5); Red Cell Distribution Width 16.1 % (9.3-17.3); White Blood Count 16.7 T/CUMM (4-12)
[2021-10-30 04:45] LABS: Platelet Count 47 T/CUMM (130-400)
[2021-10-30 04:59] LABS: Band Neutrophils 2 % (0-10); Eosinophils 4 % (0-10); Lymphocytes 8 % (20-55); Platelet Estimate Decreased; Total Cells Counted 100
[2021-10-30] MEDS: ALBUTEROL 2.5 MG/3 ML NEB RESP TX SCH ×4 (06:28→19:30)
[2021-10-30] MEDS: BUDESONIDE 0.25 MG/2 ML NEB RESP TX SCH ×2 (06:28→19:30)
[2021-10-30] MEDS: LEVOTHYROXINE 100 MCG VIAL IV SCH (09:59)
[2021-10-30] MEDS: ASPIRIN EC 81 MG TABLET PO SCH (09:59)
[2021-10-30] MEDS: carvediloL 6.25 MG TABLET PO SCH ×2 (09:59→18:20)
[2021-10-30] MEDS: FAMOTIDINE 20 MG TABLET PO SCH (09:59)
[2021-10-30] MEDS: FUROSEMIDE 40 MG/4 ML VIAL IV SCH (10:00)
[2021-10-30] MEDS: ZINC OXIDE PASTE 113 GM TUBE TOP SCH (13:48)
[2021-10-30] MEDS: ZINC/COPPER/MANGANESE/SELENIUM 1 ML, MULTIVITAMIN INJ 10 ML in AMINO ACIDS/DEXT/LYTES 5... IV SCH (14:44)
[2021-10-30] MEDS: LACTATED RINGERS 1,000 ML IV SCH (14:49)
[2021-10-30] MEDS ORDERED: MEROPENEM 500 MG in SODIUM CHLORIDE 0.9% 100 ML IV SCH (15:00)
[2021-10-30] MEDS: ONDANSETRON 4 MG/2 ML VIAL IV PRN (16:22)
[2021-10-30] MEDS ORDERED: FLUCONAZOLE INJ 200 MG/100 ML PREMIX IV SCH (17:00)
[2021-10-31 01:12] VITALS: BP 131/78
== END 2021-10-30 21:56 | DRG 329 ==
LOC: N.ED 09:24 → SUATTDRO 13:53 → N.EDINP 13:53 → N.3E 18:04 → N.TELEN 10-08 13:56 → N.ICU 10-18 10:57 → N.TELES 10-28 18:17
PROVIDERS: ADMIT Internal Medicine; ATTEND Internal Medicine